=== PATIENT | male | born 1945 | race Caucasian/White ===

== ENCOUNTER 2021-12-01 09:30 | Inpatient (IN) | payer MEDICARE, OTHER ==
[~2021-12-01] VITALS: Ht 175.3 cm; Wt 86.4 kg
--- NOTE | 2021-12-01 06:19 | PM&R Post Admission Assessment ---
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 Patient did have urinary retention after Lindsey catheter discontinued and he remains on Flomax and Urecholine. Bowels have not moved he is requesting a stool softener in addition to his probiotic. Pain is well controlled he remains in a lumbar spine brace. We are awaiting ID and sensitivity of the bacterial infection. He will need a PICC line on Friday. Prior level of functioning is independent without use of assistive devices. Past Cuolbjl-Xsilnb-Djduhi Hx Past Med/Social Hx: Reviewed Nursing Past Med/Soc Hx, Reviewed and Corrections made Patient Social History Marrital Status: Employed/Student: retired Alcohol Use: Denies Use Smoking Status: Never a Smoker Past Medical History Surgeries: Orthopedic Respiratory: Sleep Apnea Cardiac: High Cholesterol, Hypertension Genitourinary: Benign Prostatic Hyperpl Gastrointestinal: Gastroesophageal Reflux, Chronic Constipation Musculoskeletal: Degenerate Disk Disease, Arthritis PM&R Allergy/Meds/Data Review Allergies Coded Allergies: clindamycin (Verified Allergy, Unknown, 12/01/21) Home Medications Scheduled Cetirizine HCl (Zyrtec), 10 MG PO DAILY Docusate Sodium (Docusate Sodium), 200 MG PO BID PRN Fluorometholone (Fluorometholone), 5 ML OP DAILY Fluticasone Propionate (Fluticasone Propionate), 16 GM NS BID Saccharomyces Boulardii (Saccharomyces Boulardii), 500 MG PO DAILY Tamsulosin HCl (Flomax), 0.4 MG PO UD Scheduled PRN Propylene Glycol (Systane Balance), 10 ML OP TID PRN for DRY EYES Current Medications Current Medications Reviewed Review of Systems Constitutional: see HPI, malaise, weakness EENTM: no symptoms reported Respiratory: no symptoms reported Cardiovascular: no symptoms reported Gastrointestinal: constipation Genitourinary: other (Retention) Musculoskeletal: back pain Skin: no symptoms reported Psychiatric/Neurological: No Symptoms Reported All Other Systems Reviewed Negative Unless Noted: Yes Physical Exam Physical Exam Vital Signs Capillary Refill : Height, Weight, BMI Height: '" Weight: lbs. oz. kg; BMI Method: General Appearance: No Apparent Distress, WD/WN, Chronically ill Eyes: Bilateral Eye Normal Inspection, Bilateral Eye PERRL HEENT: PERRL/EOMI, Normal ENT Inspection, Pharynx Normal Neck: Full Range of Motion, Normal Inspection, Non Tender, Supple, Carotid Bruit Respiratory: Chest Non Tender, Lungs Clear, Normal Breath Sounds, No Accessory Muscle Use, No Respiratory Distress Cardiovascular: Regular Rate, Rhythm, No Edema, No Gallop, No JVD, No Murmur, Normal Peripheral Pulses Gastrointestinal: Normal Bowel Sounds, No Organomegaly, No Pulsatile Mass, Non Tender, Soft Back: Normal Inspection, Decreased Range of Motion, Muscle Spasm, Vertebral Tenderness Extremity: Normal Capillary Refill, Normal Inspection, Normal Range of Motion, Non Tender, No Calf Tenderness, No Pedal Edema Neurologic/Psychiatric: Alert, Oriented x3, No Motor/Sensory Deficits, Normal Mood/Affect Skin: Normal Color, Warm/Dry Lymphatic: No Adenopathy PM&R Medical Assessment & Plan REHAB/MEDICAL ASSESSMENT AND PLAN: REHAB IMPAIRMENT GROUP: 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 ETIOLOGIC DIAGNOSIS: Lumbar stenosis The comorbidities that impact the patients function and/or functional outcome by: Advanced age, osteomyelitis, IV antibiotics required, urinary retention, chronic constipation REHAB PLAN: The patient is being admitted to our comprehensive inpatient rehabilitation facility and can tolerate the intensity of service consisting of at least: 180 minutes of therapy a day, 5 out of 7 days a week Rehab treatment will consist of: PT and OT will focus on regaining enough function with use of assistive device while wearing a lumbar spine brace while awaiting for ID and sensitivity in order to regain enough function to return back home to independent living with his The patient/family has a good understanding of our discharge process and will benefit from an interdisciplinary inpatient rehabilitation program. The patient has potential to make improvement and is in need of at least two of the following multidisciplinary therapies including but not limited to physical, occupational, speech, and prosthetics and orthotics. Additionally the patient will need services from respiratory, nutritional services, wound care, psychology, etc. (Customize this to each patient). Given the patients complex condition and risk of further medical complications, rehabilitation services cannot be safely or effectively provided at a lower level of care such as a nursing home facility. BARRIERS TO DISCHARGE: Osteomyelitis ESTIMATED LOS: 7 days DISPOSITION: Home RELEVANT CHANGES SINCE PREADMISSION SCREENING: I have compared the patients medical and functional status at the time of the preadmission screening and there are: no changes PROGNOSIS: Good REHABILITATION GOALS: 1. PT and OT for focus on regaining of function with use of assistive devices with back brace intact well receiving IV antibiotics for osteomyelitis All the above goals were reviewed with the patient and he/she is in agreement. By signing this document, I acknowledge that I have personally performed a full physical examination on this patient within 24 hours of admission to this inpatient rehabilitation facility and have determined the patient to be able to tolerate the above course of treatment at an intensive level for a reasonable period of time. I will be completing a detailed individualized Plan of Care for this patient by day #4 of the patients stay based upon the Preadmission Screen, the Post-Admission Evaluation, and the therapy evaluations. Admission Dx/Comorbidities: (1) Lumbar stenosis without neurogenic claudication ICD Codes: M48.061 - Spinal stenosis, lumbar region without neurogenic claudication NELSON JAVIER DO Dec 01, 2021 06:19
[~2021-12-01 09:30] MED LIST: ALPRAZolam 0.25 MG (XANAX) TAB PO PRN; BISACODYL 10 MG SUPP (DULCOLAX) PR PRN; CALCIUM CARBONATE 500 MG (TUMS) TAB.CHEW PO PRN; DOCUSATE SODIUM 100 MG (COLACE) CAP PO PRN; DOCUSATE SODIUM 100 MG (COLACE) CAP PO SCH; FLEET ENEMA ADULT 1 EA BTL PR PRN; LACTULOSE SYRUP 10GM/15ML (ENULOSE) 30ML UDC PO PRN; LOPERAMIDE 2 MG (IMODIUM) TABLET PO PRN; MELATONIN 3 MG TABLET PO PRN; ONDANSETRON 4 MG (ZOFRAN) ORAL DISSOLVE TAB PO PRN; diphenhydrAMINE 25 MG TAB (BENADRYL) PO PRN; guaiFENesin/CODEINE (ROBITUSSIN AC) 10ML UDC PO PRN
[2021-12-01 09:38] VITALS: BP 135/65
[2021-12-01] MEDS ORDERED: CETI10CA PO (10:08)
[2021-12-01] MEDS ORDERED: TMSL.4C PO (10:08)
[2021-12-01] MEDS ORDERED: SACC250C12 PO (10:08)
[2021-12-01] MEDS ORDERED: FLUO5DRO6 OP (10:08)
[2021-12-01] MEDS ORDERED: FLUT16SP22 NS (10:08)
[2021-12-01] MEDS ORDERED: DOCU100C37 PO (10:08)
[2021-12-01] MEDS ORDERED: PROP10DR3 OP ×2 (10:08→10:17)
--- NOTE | 2021-12-01 10:36 | Occupational Therapy Eval ---
OT Evaluation-General/PLF Medical Diagnosis Admission Date Dec 01, 2021 at 09:30 Medical Diagnosis: s/p T10-L2 fusion with revision hardware Onset Date: Dec 01, 2021 Therapy Diagnosis Therapy Diagnosis: reduced adl status Precautions Precautions/Isolations: Fall Prevention, Standard Precautions Comments spinal precautions, no lifting >10 pounds, TLSO brace on when OOB Referral Physician: Amanda Referral Reason: Evaluation/Treatment Medical History Pertinent Medical History: Arthritis Current History Pt with previous failed fusion. S/p T10-L2 fusion with revision hardware. Per patient, he lives with in single story home. 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 Pt was not using any AD at base line. Reviewed History: Yes Social History Home: Single Level Current Living Status: Spouse Entry Into Home: Stairs With Railing Steps Into Home: 4 ADL-Prior Level of Function SCALE: Activities may be completed with or without assistive devices. 6-Czchpdcwpq-pfwzexc completes the activity by him/herself with no assistance from a helper. 5-Set-up or Clean-up Assistance-helper sets up or cleans up; patient completes activity. Spur assists only prior to or following the activity. 4-Supervision or Touching Assistance-helper provides verbal cues and/or touching/steadying and/or contact guard assistance as patient completes activity. Assistance may be provided throughout the activity or intermittently. 3-Partial/Moderate Assistance-helper does LESS THAN HALF the effort. Spur lifts, holds or supports trunk or limbs, but provides less than half the effort. 2-Substantial/Maximal Assistance-helper does MORE THAN HALF the effort. Spur lifts or holds trunk or limbs and provides more than half the effort. 7-Foguoiiec-puhkey does ALL the effort. Patient does none of the effort to complete the activity. Or, the assistance of 2 or more helpers is required for the patient to complete the activity. If activity was not attempted, code reason: 7-Patient Refused. 9-Not Applicable-not attempted and the patient did not perform the activity before the current illness, exacerbation or injury. 10-Not Attempted due to Environmental Limitations-(lack of equipment, weather restraints, etc.). 88-Not Attempted due to Medical Conditions or Safety Concerns. Self Care: Independent Functional Cognition: Independent DME/Equipment: Grab Bars, Shower Drive Self: Yes OT Current Status Subjective Pt denies pain, pleasant and Agreeable to eval. Appearance Pt returned to sitting in recliner, all needs within reach, in room. Mental Status/Objective Patient Orientation: Person, Place, Situation Current Glasses/Contacts: Yes Hand Dominance: Right ADL-Treatment Eating (QC): 6 Oral Hygiene (QC): 5 Shower/Bathe Self (QC): 7 Upper Body Dressing (QC): 4 Lower Body Dressing (QC): 4 On/Off Footwear (QC): 4 Toileting Hygiene (QC): 4 Pt sitting in recliner at OT arrival. He requires education on purpose of rehab as he stated that he was told that he was coming here for IV antibiotics only. Pt is pleasant and agreeable to eval. He was already dressed but agreed to demon strate dressing for assessment purposes. Pt owns and uses a personal lines insurance agent at home when donning Lb clothing. After AE was provided, pt was able to don clothing over feet without assist. He stood with supervision to loin puller hips. He reports that his usually dons his socks for him but he was interested in other methods to improve independence. OT instructed him on use of sock aid. Post education, pt able to complete with verbal cues only. He verbalizes that he really liked the sock aid and will be looking to purchase for discharge. He demonstrated ability to don/doff TLSO brace with verbal cues and extra time. Pt ambulated around room with supervision, no AD or LOB observed. Pt reports that he really does not want to purchase a shower chair and that he rarely washes his legs (instead he will let the soapy water run down to his feet). OT educated pt that he will be unable to stand without brace while in the shower. Pt hoping to discharge after IV antibiotics are finished. Anticipate very short stay. Education OT Patient Education: Correct positioning, Energy conservation, Modified ADL techniques, Purpose of tx/functional activities, Reviewed precautions, Rehab process, Use of adapted equipment Teaching Recipient: Patient, Family Teaching Methods: Demonstration, Discussion Response to Teaching: Verbalize Understanding, Return Demonstration, Reinforcement Needed OT Short Term Goals Short Term Goals Time Frame: Dec 04, 2021 Eatin Oral hygiene: 6 Toileting hygiene: 6 Shower/bathe self: 4 Upper body dressin Lower body dressin Putting on/taking off footwear: 5 OT Retirement Goals Retirement Goals Time Frame: Dec 08, 2021 Eating (QC): 6 Oral Hygiene (QC): 6 Toileting Hygiene (QC): 6 Shower/Bathe Self (QC): 6 Upper Body Dressing (QC): 6 Lower Body Dressing (QC): 6 On/Off Footwear (QC): 6 1=Demonstrate adherence to instructed precautions during ADL tasks. 2=Patient will verbalize/demonstrate understanding of assistive devices/modifications for ADL. 3=Patient will improve strength/tolerance for activity to enable patient to per form ADL's. OT Education/Plan Problem List/Assessment Assessment: Decreased UE Strength, Impaired I ADL's, Impaired Self-Care Skills Discharge Recommendations Plan/Recommendations: Continue POC Therapy Discharge Recommendati: Home & Family Equpiment Recommendations-D/C: Bath Chair, Long Term Care Phlebotomist, Sock Aide Treatment Plan/Plan of Care Treatment,Training & Education: Yes Patient would benefit from OT for education, treatment and training to promote independence in ADL's, mobility, safety and/or upper extremity function for ADL's. Plan of Care: ADL Retraining, Functional Mobility, Group Exercise/Act as Ind, UE Funct Exercise/Act Treatment Duration: Dec 08, 2021 Frequency: At least 5 of 7 days/Wk (IRF) Estimated Hrs Per Day: 1.5 hours per day (75-90 min/day) Agreement: Yes Rehab Potential: Good Time/GCodes Start Time: 09:47 Stop Time: 10:25 Total Time Billed (hr/min): 38 Billed Treatment Time 1 visit EVL (10 min) ADL x2 (28 min) Gladys Jamil OT Dec 01, 2021 10:36
[2021-12-01] MEDS: SENNA W/DOCUSATE (SENOKOT S) TABLET PO SCH ×2 (11:33→20:41)
[2021-12-01] MEDS: polyethylene glycoL POWDER 17 GM (MIRALAX) PACK PO SCH ×2 (11:33→20:41)
--- NOTE | 2021-12-01 11:43 | Physical Therapy Evaluation ---
PT Evaluation-General Medical Diagnosis Admission Date Dec 01, 2021 at 09:30 Medical Diagnosis: s/p T10-L2 fusion with revision hardware Onset Date: Dec 01, 2021 Therapy Diagnosis Therapy Diagnosis: difficulty walking Precautions Precautions/Isolations: Fall Prevention, Standard Precautions Weight Bear Status Right Lower Extremity: Right Full Weight Bearing Left Lower Extremity: Left Full Weight Bearing Referral Physician: Amanda Reason for Referral: Evaluation/Treatment Medical History Pertinent Medical History: Arthritis Reviewed History: Yes Social History Home: Single Level Current Living Status: Spouse Entry Into Home: Stairs With Railing PT Steps Into Home: 4 Prior Prior Level of Function SCALE: Activities may be completed with or without assistive devices. 9-Sfpojpbgen-ehweame completes the activity by him/herself with no assistance from a helper. 5-Set-up or Clean-up Assistance-helper sets up or cleans up; patient completes activity. Keene assists only prior to or following the activity. 4-Supervision or Touching Assistance-helper provides verbal cues and/or touching/steadying and/or contact guard assistance as patient completes activity. Assistance may be provided throughout the activity or intermittently. 3-Partial/Moderate Assistance-helper does LESS THAN HALF the effort. Keene lifts, holds or supports trunk or limbs, but provides less than half the effort. 2-Substantial/Maximal Assistance-helper does MORE THAN HALF the effort. Keene lifts or holds trunk or limbs and provides more than half the effort. 9-Sdksmlily-qhllkq does ALL the effort. Patient does none of the effort to complete the activity. Or, the assistance of 2 or more helpers is required for the patient to complete the activity. If activity was not attempted, code reason: 7-Patient Refused. 9-Not Applicable-not attempted and the patient did not perform the activity before the current illness, exacerbation or injury. 10-Not Attempted due to Environmental Limitations-(lack of equipment, weather restraints, etc.). 88-Not Attempted due to Medical Conditions or Safety Concerns. Bed Mobility: 6 Transfers (B,C,W/C): 6 Gait: 6 Stairs: 6 Indoor Mobility (Ambulation): Independent Stairs: Independent Prior Devices Use: None PT Evaluation-Current Subjective States that he had a L2-S1 fusion in September. States that a few screws backed out and then he had a revision a few days ago that included up to T10. The patient states that he possibly has an infection in the lumbar region. Pain Numeric Pain Scale: 2 Location: Incisional ROM/Strength ROM Upper Extremities WFL ROM Lower Extremities WFL Strength Lower Extremities 4+/5 Sensory Hand Dominance: Right Transfers Roll Left & Right (QC): 5 Sit to Lying (QC): 5 Lying to Sitting/Side of Bed(Q: 5 Sit to Stand (QC): 5 Chair/Yps-ka-Eqxpk Xfer(QC): 5 Toilet Transfer (QC): 5 Car Transfer (QC): 5 Gait Does the Patient Walk?: Yes Mode of Locomotion: Walk Anticipated Mode of Locomotion: Walk Walk 10 feet (QC): 5 Walk 50 ft with 2 Turns(QC): 5 Walk 150 ft (QC): 5 Walking 10ft/uneven surface-QC: 88 Distance: 100' Gait Assistive Device: FWW Wheelchair Training Does the Pt Use a Wheelchair?: No Wheel 50 ft with 2 turns (QC): 09 Wheel 150 ft (QC): 09 Stairs #of Steps: 12 1 Step (curb) (QC): 5 4 Steps (QC): 5 12 Steps (QC): 5 Balance Sitting Static: Normal Sitting Dynamic: Normal Standing Static: Fair Standing Dynamic: Fair Picking up an Object (QC): 88 Assessment/Needs The patient is doing well but he does have some limitations with functional mobility secondary to pain. He should do well with skilled therapy. Rehab Potential: Good PT Banana Expert Goals Intermediate Goals PT Intermediate Goals Time Frame: Dec 15, 2021 Roll Left & Right (QC): 6 Sit to Lying (QC): 6 Lying-Sitting on Side/Bed(QC): 6 Sit to Stand (QC): 6 Chair/Hpv-ag-Jeajo Xfer(QC): 6 Toilet Transfer (QC): 6 Car Transfer (QC): 6 Does the Patient Walk: Yes Walk 10 feet (QC): 6 Walk 50ft with 2 Turns (QC): 6 Walk 150 ft (QC): 6 Walking 10ft on Uneven Surface: 6 1 Step (curb) (QC): 6 4 Steps (QC): 6 12 Steps (QC): 6 Picking up an Object (QC): 6 Does the Pt use WC or Scooter?: Yes Wheel 50 feet with 2 turns (QC: 09 Wheel 150 feet: 09 PT Plan Treatment/Plan Treatment Plan: Continue Plan of Care Treatment Plan: Bed Mobility, Functional Activity Abdelrahman, Gait, Safety, Thera peutic Exercise, Transfers Treatment Duration: Dec 15, 2021 Frequency: 11 times per week Estimated Hrs Per Day: 1.5 hours per day Patient and/or Family Agrees t: Yes Time/GCodes Time In: 1140 Time Out: 1200 Total Billed Treatment Time: 20 Total Billed Treatment 1, EV Low complexity x 20' VALENTÍN XIONG PT Dec 01, 2021 11:43
[2021-12-01] MEDS ORDERED: VANCOMYCIN INJECTION 0.1 MG in NS (IVPB) 250 ML IV SCH (11:45)
[2021-12-01] MEDS ORDERED: ARTIFICAL TEARS 0.4 ML UNIT DOSE (REFRESH PLUS) OU PRN (12:00)
[2021-12-01] MEDS ORDERED: PROPYLENE GLYCOL OP PRN (12:00)
[2021-12-01 12:23] LABS: POTASSIUM 3.7 MMOL/L (3.6-5.0)
[2021-12-01 12:24] LABS: CALCIUM 8.8 MG/DL (8.5-10.1)
[2021-12-01 12:28] LABS: CREATININE SERUM 0.76 MG/DL (0.60-1.30)
[2021-12-01] MEDS: ACETAMINOPHEN 325 MG TABLET PO PRN ×2 (13:30→20:45)
[2021-12-01] MEDS: VANCOMYCIN 1250 MG/NS 250 ML IVPB IV SCH ×2 (14:32)
[2021-12-01] MEDS: BETHANECHOL 25 MG (URECHOLINE) TAB PO SCH ×2 (17:18→20:42)
[2021-12-01] MEDS: TAMSULOSIN 0.4 MG (FLOMAX) CAP PO SCH (17:19)
[2021-12-01 19:53] VITALS: BP 133/61
[2021-12-01] MEDS: DOCUSATE SODIUM 100 MG (COLACE) CAP PO SCH (20:41)
[2021-12-01] MEDS: rifAMPin 150 MG CAPSULE PO SCH (20:44)
[2021-12-01] MEDS: FLUTICASONE NASAL SPRAY (FLONASE) 16 GM BTL NS SCH (20:44)
[2021-12-02] MEDS: VANCOMYCIN 1250 MG/NS 250 ML IVPB IV SCH ×2 (01:58)
[2021-12-02] MEDS: ACETAMINOPHEN 325 MG TABLET PO PRN (04:27)
[2021-12-02 05:18] LABS: BASOPHILS # (AUTO) 0.1 10^3/uL (0.0-0.1); BASOPHILS % (AUTO) 1 % (0-10); EOSINOPHILS # (AUTO) 0.2 10^3/uL (0.0-0.3); EOSINOPHILS % (AUTO) 3 % (0-10); HEMATOCRIT 31 % (40-54); HEMOGLOBIN 10.3 g/dL (13.3-17.7); LYMPHOCYTES # (AUTO) 1.1 10^3/uL (1.0-4.0); LYMPHOCYTES % (AUTO) 13 % (12-44); MEAN CORPUSCULAR HEMOGLOBIN 29 pg (25-34); MEAN CORPUSCULAR HGB CONC 33 g/dL (32-36); MEAN CORPUSCULAR VOLUME 87 fL (80-99); MEAN PLATELET VOLUME 9.3 fL (9.0-12.2); MONOCYTES # (AUTO) 0.7 10^3/uL (0.0-1.0); MONOCYTES % (AUTO) 9 % (0-12); NEUTROPHILS # (AUTO) 6.3 10^3/uL (1.8-7.8); NEUTROPHILS % (AUTO) 74 % (42-75); PLATELET COUNT 164 10^3/uL (130-400); WHITE BLOOD COUNT 8.4 10^3/uL (4.3-11.0)
[2021-12-02 05:34] LABS: ALBUMIN 3.2 GM/DL (3.2-4.5); POTASSIUM 3.4 MMOL/L (3.6-5.0)
[2021-12-02 05:35] LABS: CALCIUM 8.1 MG/DL (8.5-10.1)
[2021-12-02 05:36] LABS: TOTAL PROTEIN 5.6 GM/DL (6.4-8.2)
[2021-12-02 05:38] LABS: BILIRUBIN,TOTAL 2.2 MG/DL (0.1-1.0)
[2021-12-02 05:40] LABS: CREATININE SERUM 0.62 MG/DL (0.60-1.30)
[2021-12-02] MEDS: BETHANECHOL 25 MG (URECHOLINE) TAB PO SCH (06:34)
--- NOTE | 2021-12-02 07:08 | Individualized Plan of Care ---
Individualized Plan of Care Rehab Nursing IPOC Order Admission Date Dec 01, 2021 at 09:30 Current Orders Orders Admission Order(Inpt,Obs,Sdc) (12/01/21 06:15) Vital Signs: Per Unit Policy ( 08,16,00 (12/01/21 06:15) Raheel Curry (12/01/21 06:15) Sequential Compression Device (12/01/21 06:15) Director College-Inpt Rehab Con (12/01/21 06:15) Rehab Nursing Orders-Ipoc (12/01/21 06:15) Physical Therapy Rehab Orders (12/01/21 06:15) Occupational Therapy Rehab Ord (12/01/21 06:15) Speech Therapy Rehab Orders (12/01/21 06:15) Cbc With Automated Diff (12/02/21 06:00) Comprehensive Metabolic Panel (12/02/21 06:00) Precautions (Aru) (12/01/21 06:15) Weekly Weight WEEK (12/01/21 06:15) Rehab-Intensity Of Therapy (12/01/21 06:15) Initiate Admission Nursing Pro .admission (12/01/21 06:15) Alprazolam Tablet (Xanax Tablet) (12/01/21 06:15) Calcium Carbonate Chew Tablet (Antacid C (12/01/21 06:15) Diphenhydramine Tablet (Benadryl Tablet) (12/01/21 06:15) Docusate Sodium Capsule (Colace Capsule) (12/01/21 09:00) Docusate Sodium Capsule (Colace Capsule) (12/01/21 06:15) Bisacodyl Suppository (Dulcolax Supposit (12/01/21 06:15) Lactulose Oral Solution (Enulose Oral So (12/01/21 06:15) Na Phos/Na Biphos Enema (Fleet Enema Alton (12/01/21 06:15) Guaifenesin/Codeine Syrup (Robitussin Ac (12/01/21 06:15) Loperamide Tablet (Imodium Tablet) (12/01/21 06:15) Melatonin Tablet (Melatonin Tablet) (12/01/21 06:15) Polyethylene Glycol Powder Pkt (Miralax (12/01/21 09:00) Ondansetron Oral Dissolve Tab (Zofran (12/01/21 06:15) Senna S Tablet (Senokot S Tablet) (12/01/21 09:00) Acetaminophen Tablet/Caplet (Tylenol T (12/01/21 06:15) Code/Resuscitation (12/01/21 06:15) Initiate Admission Nursing Pro .admission (12/01/21 06:15) Admission Arrival Bed Request (12/01/21 09:31) General/Regular (12/01/21 Lunch) Iv Heplock-Insert (Order) (12/01/21 11:45) Vancomycin Injection (Vancomycin Injecti (12/01/21 11:45) Docusate Sodium Capsule (Colace Capsule) (12/01/21 21:00) Fluorometholone 0.1% Ophth Jessica (Fml 0.1% (12/02/21 09:00) Fluticasone Nasal Strabane (Flonase Nasal S (12/01/21 21:00) Tamsulosin Capsule (Flomax Capsule) (12/01/21 18:00) (Nf) Cetirizine Hcl (Zyrtec) (12/02/21 09:00) (Nf) Propylene Glycol (Systane Balance) (12/01/21 12:00) (Nf) Saccharomyces Boulardii (12/02/21 09:00) Basic Metabolic Panel (12/01/21 11:48) Loratadine Tablet (Claritin Tablet) (12/02/21 09:00) Carboxymethylcell Ophth Soln (Refresh Pl (12/01/21 12:00) Lactobacillus Acidophilus Cap (Acidophil (12/02/21 09:00) Patient Visit (12/01/21 ) Pt Eval Low Complexity (12/01/21 ) Rifampin Capsule (Rifadin Capsule) (12/01/21 21:00) Bethanechol Tablet (Urecholine Tablet) (12/01/21 16:00) Vancomycin Injection (Vancomycin Injecti (12/01/21 14:00) Trough Order (Trough Order-Pharmacy Orde (12/02/21 13:00) Vancomycin,Trough (12/02/21 13:00) Request Ot Additional Orders (12/01/21 14:47) Dressing Order (Intervention) UD (12/01/21 14:50) Request Pt Additional Orders (12/01/21 14:56) Nursing Communication (Order) (12/01/21 14:57) Follow-Up Appointment (12/01/21 14:57) Patient May Use Own Med,Single (Patient (12/02/21 11:15) Patient May Use Own Med,Single (Patient (12/02/21 11:30) Bethanechol Tablet (Urecholine Tablet) (12/02/21 12:00) Vancomycin Injection (Vancomycin Injecti (12/02/21 14:30) Trough Order (Trough Order-Pharmacy Orde (12/04/21 13:30) Vancomycin,Trough (12/04/21 13:30) Rehab Nursing Orders: Ongoing Assess. of Cognitive Status, Ongoing Assess. of Function Status, Bladder Management, Bladder Scan, Bladder Training, Bowel Management, Bowel Training, Disease Management & Educaiton, DVT Prophylaxis, Fall Prevention, Fluid/Electrolyte/Nutrition Mgmt, Infection Prevention, Medication Management & Education, Management of Risks & Complications, Management of Skin Intergrity, Nutrition Management, Pain Management, Patient/Family Support, Safety Management Intensity of Therapy to be met Patient to be seen: Min.3h per day/5 of 7d PT IPOC Problem List: Activity Tolerance, Functional Strength, Balance, Gait, ROM Treatment Plan: Continue Plan of Care Bed Mobility, Functional Activity Abdelrahman, Gait, Safety, Therapeutic Exercise, Transfers Treatment Duration: Dec 15, 2021 Frequency: 11 times per week Estimated Hrs Per Day: 1.5 hours per day OT IPOC Problems: Decreased UE Strength, Impaired I ADL's, Impaired Self-Care Skills OT Treatment, Training and Edu: Yes Plan of Care: ADL Retraining, Functional Mobility, Group Exercise/Act as Ind, UE Funct Exercise/Act Treatment Duration: Dec 08, 2021 Frequency: At least 5 of 7 days/Wk (IRF) Estimated Hrs Per Day: [address] IPOC Speech Therapy Treatment Plan: Discontinue ST Treatment Duration: Dec 02, 2021 Frequency: Modified Program (IRF) Estimated Hrs Per Day: Other Director College/Case Mgmt Director College/Case Managemen: Discharge Planning Dietitian/Internet Marketing Intern Dietitian/Internet Marketing Intern to monitor nutritional status and make changes and/or recommendations as needed and work with speech pathology on dietary upgrades as the occur. Physician IPOC Medical Issues being managed closely and that require the 24 hour availability of a physician: Complex lumbar spine surgery requiring supportive care with aggressive physical therapy while awaiting ID and sensitivity of bacteria in order to regain enough independence to return home Medical Issues: Bowel/Bladder Function, DVT Prophylaxis, Falls Precautions, Fluid/Electrolyte/Nutrition Balance, Infection Protection, Pain Management, Wound Care Brief Synthesis of Preadmission Screen, Post-Admission Evaluation, and Therapy Evaluations: PT and OT will initiate aggressive regimen to increase stamina and work on balance to prevent falls following extensive lumbar spine surgery Medical Prognosis: Good Anticipated Length of Stay: 6 days NELSON JAVIER DO Dec 02, 2021 07:08
--- NOTE | 2021-12-02 07:08 | PM&R Progress Note ---
Subjective HPI/CC On Admission Date Seen by Provider: Dec 02, 2021 Time Seen by Provider: 12:00 Subjective/Events-last exam 12/02/21: Patient doing well Bowels are moving Antibiotic regimen maintained Awaiting final results with ID and sensitivity from Linda Jarrett Pain is well controlled Monitor closely Review of Systems General: Fatigue, Malaise Musculoskeletal: back pain Objective Exam Vital Signs Vital Signs Date Time Temp Pulse Resp B/P (MAP) Pulse Ox O2 Delivery O2 Flow Rate FiO2 12/02/21 09:20 Room Air 12/02/21 07:09 36.7 84 20 140/68 (92) 96 Capillary Refill : General Appearance: No Apparent Distress, WD/WN, Chronically ill HEENT: PERRL/EOMI, Normal ENT Inspection, Pharynx Normal Neck: Full Range of Motion, Normal Inspection, Non Tender, Supple, Carotid Bruit Respiratory: Chest Non Tender, Lungs Clear, Normal Breath Sounds, No Accessory Muscle Use, No Respiratory Distress Cardiovascular: Regular Rate, Rhythm, No Edema, No Gallop, No JVD, No Murmur, Normal Peripheral Pulses Gastrointestinal: Normal Bowel Sounds, No Organomegaly, No Pulsatile Mass, Non Tender, Soft Back: Normal Inspection, Decreased Range of Motion, Muscle Spasm, Vertebral Tenderness Extremity: Normal Capillary Refill, Normal Inspection, Normal Range of Motion, Non Tender, No Calf Tenderness, No Pedal Edema Neurologic/Psychiatric: Alert, Oriented x3, No Motor/Sensory Deficits, Normal Mood/Affect Skin: Normal Color, Warm/Dry Lymphatic: No Adenopathy Results/Procedures Lab Laboratory Tests 12/02/21 05:10 Patient resulted labs reviewed. FIM Transfers Therapy Code Descriptions/Definitions Functional [place] Measure: 0=Not Assessed/NA 4=Minimal Assistance 1=Total Assistance 5=Supervision or Setup 2=Maximal Assistance 6=Modified [place] 3=Moderate Assistance 7=Complete IndependenceSCALE: Activities may be completed with or without assistive devices. 6-Dyzqlgexxy-zupxnlj completes the activity by him/herself with no assistance from a helper. 5-Set-up or Clean-up Assistance-helper sets up or cleans up; patient completes activity. [place] assists only prior to or following the activity. 4-Supervision or Touching Assistance-helper provides verbal cues and/or touch ing/steadying and/or contact guard assistance as patient completes activity. Assistance may be provided throughout the activity or intermittently. 3-Partial/Moderate Assistance-helper does LESS THAN HALF the effort. [place] lifts, holds or supports trunk or limbs, but provides less than half the effort. 2-Substantial/Maximal Assistance-helper does MORE THAN HALF the effort. [place] lifts or holds trunk or limbs and provides more than half the effort. 5-Yjajgwfnc-jgzbms does ALL the effort. Patient does none of the effort to complete the activity. Or, the assistance of 2 or more helpers is required for the patient to complete the activity. If activity was not attempted, code reason: 7-Patient Refused. 9-Not Applicable-not attempted and the patient did not perform the activity bef ore the current illness, exacerbation or injury. 10-Not Attempted due to Environmental Limitations-(lack of equipment, weather restraints, etc.). 88-Not Attempted due to Medical Conditions or Safety Concerns. Roll Left to Right (QC): 5 Sit to Lying (QC): 5 Sit to Stand (QC): 5 Chair/Xwd-vu-Kdvew Xfer(QC): 5 Car Transfer (QC): 5 Gait Training Does the Patient Walk?: Yes Walk 10 feet (QC): 5 Walk 50 ft with 2 Turns(QC): 5 Walk 150 ft (QC): 5 Walking 10ft/uneven surface-QC: 88 Gait Assistive Device: FWW Wheelchair Training Does the Pt Use a Wheelchair?: No Wheel 50 ft with 2 turns (QC): 09 Wheel 150 ft (QC): 09 Stair Training #of Steps: 12 1 Step (curb) (QC): 5 4 Steps (QC): 5 12 Steps (QC): 5 Balance Picking up an Object (QC): 88 ADL-Treatment Eating (QC): 6 Oral Hygiene (QC): 5 Shower/Bathe Self (QC): 7 Upper Body Dressing (QC): 4 Lower Body Dressing (QC): 4 On/Off Footwear (QC): 4 Toileting Hygiene (QC): 4 Assessment/Plan Assessment and Plan Assess & Plan/Chief Complaint Assessment: Lumbar spine surgery due to stenosis with bacterial infection on surgical specimen on Vanc and Rifampin DARIN BPH Recent urinary retention Constipation Plan: PT OT IV abx Supportive jail meds 12/02/21: Supportive care Monitor closely (1) Lumbar stenosis without neurogenic claudication NELSON JAVIER DO Dec 02, 2021 07:08
[2021-12-02 07:09] VITALS: BP 140/68
[2021-12-02] MEDS: rifAMPin 150 MG CAPSULE PO SCH ×2 (08:25→20:26)
[2021-12-02] MEDS: LACTOBACILLUS ACIDOPHILUS (PROBIOTIC) CAPSULE PO SCH (08:25)
[2021-12-02] MEDS: LORATADINE (CLARITIN) 10 MG TAB PO SCH (08:25)
[2021-12-02] MEDS: FLUTICASONE NASAL SPRAY (FLONASE) 16 GM BTL NS SCH ×2 (08:26→20:27)
[2021-12-02] MEDS: FLUOROMETHOLONE 0.1% OP SCH (08:27)
[2021-12-02] MEDS: polyethylene glycoL POWDER 17 GM (MIRALAX) PACK PO SCH ×2 (08:28→20:52)
[2021-12-02] MEDS: DOCUSATE SODIUM 100 MG (COLACE) CAP PO SCH ×2 (08:28→20:52)
[2021-12-02] MEDS: SENNA W/DOCUSATE (SENOKOT S) TABLET PO SCH ×2 (08:28→20:52)
[2021-12-02] MEDS ORDERED: NON-FORMULARY MEDICATION 1 EA EA (Cetirizine HCl (Zyrtec) 10 MG) PO SCH (09:00)
[2021-12-02] MEDS ORDERED: SACCHAROMYCES BOULARDII 500 MG PO SCH (09:00)
[2021-12-02] MEDS ORDERED: PATIENT MAY USE OWN MED,SINGLE MED PO PRN (11:15)
[2021-12-02] MEDS ORDERED: BETHANECHOL 25 MG (URECHOLINE) TAB PO PRN (12:00)
[2021-12-02] MEDS: ACETAMINOPHEN ER 650 MG TABLET PO PRN ×2 (12:04→18:37)
[2021-12-02] MEDS ORDERED: TROUGH ORDER-PHARMACY XX NR (13:00)
[2021-12-02] MEDS: VANCOMYCIN 1500 MG/NS 500 ML IVPB IV SCH ×2 (14:57)
[2021-12-02] MEDS: TAMSULOSIN 0.4 MG (FLOMAX) CAP PO SCH (18:35)
[2021-12-02 19:52] VITALS: BP 138/63
[2021-12-03] MEDS: ACETAMINOPHEN ER 650 MG TABLET PO PRN ×4 (01:28→21:12)
[2021-12-03] MEDS: VANCOMYCIN 1500 MG/NS 500 ML IVPB IV SCH ×2 (02:26)
--- NOTE | 2021-12-03 07:08 | PM&R Progress Note ---
Subjective HPI/CC On Admission Date Seen by Provider: Dec 03, 2021 Time Seen by Provider: 10:00 Subjective/Events-last exam 12/03/21: No reports of issues Coag negative staph on Cx Vanc and rifampin maintained PICC will be placed 12/02/21: Patient doing well Bowels are moving Antibiotic regimen maintained Awaiting final results with ID and sensitivity from Linda Jarrett Pain is well controlled Monitor closely Review of Systems General: Fatigue Musculoskeletal: back pain Objective Exam Vital Signs Vital Signs Date Time Temp Pulse Resp B/P (MAP) Pulse Ox O2 Delivery O2 Flow Rate FiO2 12/03/21 09:55 Room Air 12/03/21 07:36 36.8 76 16 124/61 (82) 96 Capillary Refill : General Appearance: No Apparent Distress, WD/WN, Chronically ill HEENT: PERRL/EOMI, Normal ENT Inspection, Pharynx Normal Neck: Full Range of Motion, Normal Inspection, Non Tender, Supple, Carotid Bruit Respiratory: Chest Non Tender, Lungs Clear, Normal Breath Sounds, No Accessory Muscle Use, No Respiratory Distress Cardiovascular: Regular Rate, Rhythm, No Edema, No Gallop, No JVD, No Murmur, Normal Peripheral Pulses Gastrointestinal: Normal Bowel Sounds, No Organomegaly, No Pulsatile Mass, Non Tender, Soft Back: Normal Inspection, Decreased Range of Motion, Muscle Spasm, Vertebral Tenderness Extremity: Normal Capillary Refill, Normal Inspection, Normal Range of Motion, Non Tender, No Calf Tenderness, No Pedal Edema Neurologic/Psychiatric: Alert, Oriented x3, No Motor/Sensory Deficits, Normal Mood/Affect Skin: Normal Color, Warm/Dry Lymphatic: No Adenopathy Results/Procedures Lab Patient resulted labs reviewed. FIM Transfers Therapy Code Descriptions/Definitions Functional [place] Measure: 0=Not Assessed/NA 4=Minimal Assistance 1=Total Assistance 5=Supervision or Setup 2=Maximal Assistance 6=Modified [place] 3=Moderate Assistance 7=Complete IndependenceSCALE: Activities may be completed with or without assistive devices. 2-Frhfdzpslw-wrkzidy completes the activity by him/herself with no assistance from a helper. 5-Set-up or Clean-up Assistance-helper sets up or cleans up; patient completes activity. [place] assists only prior to or following the activity. 4-Supervision or Touching Assistance-helper provides verbal cues and/or touching/steadying and/or contact guard assistance as patient completes activity. Assistance may be provided throughout the activity or intermittently. 3-Partial/Moderate Assistance-helper does LESS THAN HALF the effort. [place] lifts, holds or supports trunk or limbs, but provides less than half the effort. 2-Substantial/Maximal Assistance-helper does MORE THAN HALF the effort. [place] lifts or holds trunk or limbs and provides more than half the effort. 4-Cyszythpt-lcclxf does ALL the effort. Patient does none of the effort to complete the activity. Or, the assistance of 2 or more helpers is required for the patient to complete the activity. If activity was not attempted, code reason: 7-Patient Refused. 9-Not Applicable-not attempted and the patient did not perform the activity before the current illness, exacerbation or injury. 10-Not Attempted due to Environmental Limitations-(lack of equipment, weather restraints, etc.). 88-Not Attempted due to Medical Conditions or Safety Concerns. Roll Left to Right (QC): 5 Sit to Lying (QC): 5 Sit to Stand (QC): 5 Chair/Mia-tl-Robkw Xfer(QC): 5 Car Transfer (QC): 5 Gait Training Does the Patient Walk?: Yes Walk 10 feet (QC): 5 Walk 50 ft with 2 Turns(QC): 5 Walk 150 ft (QC): 5 Walking 10ft/uneven surface-QC: 88 Gait Assistive Device: FWW Wheelchair Training Does the Pt Use a Wheelchair?: No Wheel 50 ft with 2 turns (QC): 09 Wheel 150 ft (QC): 09 Stair Training #of Steps: 12 1 Step (curb) (QC): 5 4 Steps (QC): 5 12 Steps (QC): 5 Balance Picking up an Object (QC): 88 ADL-Treatment Eating (QC): 6 Oral Hygiene (QC): 5 Shower/Bathe Self (QC): 7 Upper Body Dressing (QC): 4 Lower Body Dressing (QC): 4 On/Off Footwear (QC): 4 Toileting Hygiene (QC): 4 Assessment/Plan Assessment and Plan Assess & Plan/Chief Complaint Assessment: Lumbar spine surgery due to stenosis with bacterial infection on surgical specimen on Vanc and Rifampin DARIN BPH Recent urinary retention Constipation Plan: PT OT IV abx Supportive senior care meds 12/02/21: Supportive care Monitor closely 12/03/21: PICC Vanc (1) Lumbar stenosis without neurogenic claudication NELSON JAVIER DO Dec 03, 2021 07:08
[2021-12-03 07:36] VITALS: BP 124/61
[2021-12-03] MEDS: rifAMPin 150 MG CAPSULE PO SCH ×2 (08:03→21:11)
[2021-12-03] MEDS: FLUTICASONE NASAL SPRAY (FLONASE) 16 GM BTL NS SCH ×2 (08:03→21:11)
[2021-12-03] MEDS: LACTOBACILLUS ACIDOPHILUS (PROBIOTIC) CAPSULE PO SCH (08:03)
[2021-12-03] MEDS: FLUOROMETHOLONE 0.1% OP SCH (08:03)
[2021-12-03] MEDS: LORATADINE (CLARITIN) 10 MG TAB PO SCH (08:03)
--- NOTE | 2021-12-03 08:57 | ST Cognitive Linguistic Eval ---
Speech Evaluation-General Medical Diagnosis s/p T10-L2 fusion with revision hardware Onset Date: Dec 01, 2021 Therapy Diagnosis Therapy Diagnosis: Intact Cognitive Linguistic Skills Precautions Precautions: Fall Precautions/Isolations: Fall Prevention, Standard Precautions Referral Referring Physician: Dr. Patel Reason for Referral: Evaluation/Treatment Medical History Pertinent Medical History: Arthritis Reviewed History: Yes Social History Current Living Status: Spouse Speech PLF-Current Status Prior Level of Function The patient denied challenges or concerns regarding his speech, language, or cognition prior to or following admission. Subjective The patient was seated upright in his recliner, awake and alert upon entrance to his room by the clinician. The patient greeted the clinician appropriately and was agreeable to participation in the cognitive linguistic evaluation. Language Eval: Auditory Comprehends Simple Yes/No Ques: Functional Indent/Objects Multiple Oneal: Functional Ident/Pics in Multiple Oneal: Functional Follows 1-Step Commands: Functional Follows Complex Directions: Functional Follows General Conversations: Functional Language Eval: Verbal Language Completes Spontaneous Greeting: Functional Produces Auto, Serial Info: Functional Imitates Simple Words/Phrases: Functional Word Finding: Functional Requests Basic Needs: Functional States Basic Personal Info: Functional Expresses Complex Ideas: Functional Language Evaluation: Reading Follows Simple Written Direct: Functional Language Evaluation: Writing Writes to Simple Dictation: Functional Cognitive Patient Orientation The patient was independently oriented to self, location, month, day of week, date, and year. Objective Cognitive Domain Attention: WNL Memory: WNL Problem Solving: Functional Executive Functions: WNL Composite Severity Rating: WNL Objective Formal/Standardized Tests [facility] Mental Status Exam ([facility]) Results The patient demonstrated a result of +30/30 on the SLUMS correlating to a cognitive linguistic score within normal limits. Oral Motor/Speech Production The patient does not display dysarthria or apraxia of speech. The patient remains 100% intelligible in known and unknown contexts. Impression The patient demonstrated cognitive linguistic skills within normal limits. Speech Patient Assess Expression of Ideas/Wants: Expression (4) Understanding Verbal Content: Understands (4) Brief Interview-Mental Status: Yes Repetition of Three Words: Three (3) Temporal Orientation: Year: Correct (3) Temporal Orientation: Month: Accurate within 5 days(2) Temporal Orientation: Day: Correct (1) Recall : Wear to say "Sock": Yes, no cue required (2) Recall : Color: Yes, no cue required (2) Recall : Bed: Yes, no cue required (2) Memory/Recall Ability: Current season, Location of own room, Staff names and faces, That he or she is in a hsp/hsp unit Speech-Plan Treatment Plan Speech Therapy Treatment Plan: Discontinue ST Treatment Duration: Dec 02, 2021 Frequency: 1 time per week Estimated Hrs Per Day: .5 hour per day Rehab Potential: Good Safety Risks/Education Teaching Recipient: Patient Teaching Methods: Discussion Response to Teaching: Verbalize Understanding Education Topics Provided: Results of ELIZABETH DURON Time Speech Therapy Time In: 08:00 Speech Therapy Time Out: 08:30 Total Billed Time: 30 Billed Treatment Time 1, GINA CHAMORRO ELIZABETH ST Dec 03, 2021 08:57
[2021-12-03] MEDS: DOCUSATE SODIUM 100 MG (COLACE) CAP PO SCH ×2 (09:50→21:43)
[2021-12-03] MEDS: SENNA W/DOCUSATE (SENOKOT S) TABLET PO SCH ×2 (09:51→21:44)
[2021-12-03] MEDS: polyethylene glycoL POWDER 17 GM (MIRALAX) PACK PO SCH ×2 (09:51→21:43)
--- NOTE | 2021-12-03 09:57 | Physical Therapy Daily Note ---
PT Daily Note-Current Subjective Patient in recliner pre tx, agrees to PT, states he has no pain in his back other than incision pain. Appearance Patient in recliner post tx with nurse call, phone, tray, all needs met. Mental Status Patient Orientation: Person, Place, Situation TLSO Transfers SCALE: Activities may be completed with or without assistive devices. 9-Tfwreuzwtk-itjaxmc completes the activity by him/herself with no assistance from a helper. 5-Set-up or Clean-up Assistance-helper sets up or cleans up; patient completes activity. [place] assists only prior to or following the activity. 4-Supervision or Touching Assistance-helper provides verbal cues and/or touching/steadying and/or contact guard assistance as patient completes activity. Assistance may be provided throughout the activity or intermittently. 3-Partial/Moderate Assistance-helper does LESS THAN HALF the effort. [place] lifts, holds or supports trunk or limbs, but provides less than half the effort. 2-Substantial/Maximal Assistance-helper does MORE THAN HALF the effort. [place] lifts or holds trunk or limbs and provides more than half the effort. 6-Cxrgfpguj-broalh does ALL the effort. Patient does none of the effort to complete the activity. Or, the assistance of 2 or more helpers is required for the patient to complete the activity. If activity was not attempted, code reason: 7-Patient Refused. 9-Not Applicable-not attempted and the patient did not perform the activity before the current illness, exacerbation or injury. 10-Not Attempted due to Environmental Limitations-(lack of equipment, weather restraints, etc.). 88-Not Attempted due to Medical Conditions or Safety Concerns. Sit to Stand (QC): 6 Chair/Cuu-wx-Krlsd Xfer(QC): 6 Weight Bearing Right Lower Extremity: Right Full Weight Bearing Left Lower Extremity: Left Full Weight Bearing Gait Training Distance: 800'x2 Walk 10 feet (QC): 4 Walk 50 ft with 2 Turns(QC): 4 Walk 150 ft (QC): 4 Gait Assistive Device: FWW SBA, slow but steady ambulation Exercises NuStep Minutes: 15 NuStep Workload: 4 (BUE not used) Treatments transfers, ambulation, LE strengthening Assessment Current Status: Fair Progress patient needed one rest break on the NuStep PT Senior Living Goals Packaging Tech Goals PT Packaging Tech Goals Time Frame: Dec 15, 2021 Roll Left & Right (QC): 6 Sit to Lying (QC): 6 Lying-Sitting on Side/Bed(QC): 6 Sit to Stand (QC): 6 Chair/Lfu-li-Exrvk Xfer(QC): 6 Toilet Transfer (QC): 6 Car Transfer (QC): 6 Does the Patient Walk: Yes Walk 10 feet (QC): 6 Walk 50ft with 2 Turns (QC): 6 Walk 150 ft (QC): 6 Walking 10ft on Uneven Surface: 6 1 Step (curb) (QC): 6 4 Steps (QC): 6 12 Steps (QC): 6 Picking up an Object (QC): 6 Does the Pt use WC or Scooter?: Yes Wheel 50 feet with 2 turns (QC: 09 Wheel 150 feet: 09 PT Plan Problem List Problem List: Activity Tolerance, Functional Strength, Safety, Balance, Gait, Transfer, Bed Mobility, ROM Treatment/Plan Treatment Plan: Continue Plan of Care Treatment Plan: Bed Mobility, Functional Activity Abdelrahman, Gait, Safety, Therapeutic Exercise, Transfers Treatment Duration: Dec 15, 2021 Frequency: 11 times per week Estimated Hrs Per Day: 1.5 hours per day Patient and/or Family Agrees t: Yes Safety Risks/Education Patient Education: Gait Training, Transfer Techniques, Correct Positioning, Safety Issues Teaching Recipient: Patient Teaching Methods: Demonstration, Discussion Response to Teaching: Reinforcement Needed Time/GCodes Time In: 0900 Time Out: 1000 Total Billed Treatment Time: 60 Total Billed Treatment 1 visit EX 15' FA 45' WILLI NELSNO PT Dec 03, 2021 09:57
--- NOTE | 2021-12-03 11:56 | Occupational Ther Daily Note ---
OT Current Status-Daily Note Subjective Pt using the restroom prior to tx. OT took over for nursing. Pt agreeable to tx. Mental Status/Objective Patient Orientation: Person, Place, Situation Attachments: IV ADL-Treatment Therapy Code Descriptions/Definitions Functional [place] Measure: 0=Not Assessed/NA 4=Minimal Assistance 1=Total Assistance 5=Supervision or Setup 2=Maximal Assistance 6=Modified [place] 3=Moderate Assistance 7=Complete IndependenceSCALE: Activities may be completed with or without assistive devices. 4-Cpdchhkgpp-xjagfdl completes the activity by him/herself with no assistance from a helper. 5-Set-up or Clean-up Assistance-helper sets up or cleans up; patient completes activity. [place] assists only prior to or following the activity. 4-Supervision or Touching Assistance-helper provides verbal cues and/or touching/steadying and/or contact guard assistance as patient completes activity. Assistance may be provided throughout the activity or intermittently. 3-Partial/Moderate Assistance-helper does LESS THAN HALF the effort. [place] lifts, holds or supports trunk or limbs, but provides less than half the effort. 2-Substantial/Maximal Assistance-helper does MORE THAN HALF the effort. [place] lifts or holds trunk or limbs and provides more than half the effort. 4-Mildabkox-uhhqwf does ALL the effort. Patient does none of the effort to complete the activity. Or, the assistance of 2 or more helpers is required for the patient to complete the activity. If activity was not attempted, code reason: 7-Patient Refused. 9-Not Applicable-not attempted and the patient did not perform the activity before the current illness, exacerbation or injury. 10-Not Attempted due to Environmental Limitations-(lack of equipment, weather restraints, etc.). 88-Not Attempted due to Medical Conditions or Safety Concerns. Shower/Bathe Self (QC): 4 (SBA for standing balance. Pt required v/c's for sequencing and to adhere to back precautions.) Upper Body Dressing (QC): 5 Lower Body Dressing (QC): 4 (VCs for back precautions) On/Off Footwear: 5 (slip on shoes) Toileting Hygiene (QC): 6 Other Treatment Pt using restroom prior to tx. OT took over for nursing. Pt required supervision with FWW for all transfers. Pt completed showering and dressing, pt educated on energy conservation with ADLs and AE for LBD. Pt also educated on safety of back precautions, cues required throughout session in order to adhere to precautions. Post tx, pt left in recliner with call light in reach and all needs met. Education OT Patient Education: Correct positioning, Energy conservation, Exercise program, Home exercise program, Instructions don/doff splint/brace, Modified ADL techniques, Progress toward Goal/Update tx plan, Purpose of tx/functional activities, Reviewed precautions, Rehab process, Safety issues, Transfer techniques, Use of adapted equipment OT Short Term Goals Short Term Goals Time Frame: Dec 04, 2021 Eatin Oral hygiene: 6 Toileting hygiene: 6 Shower/bathe self: 4 Upper body dressin Lower body dressin Putting on/taking off footwear: 5 OT Marketing Communications Associate Goals Marketing Communications Associate Goals Time Frame: Dec 08, 2021 Eating (QC): 6 Oral Hygiene (QC): 6 Toileting Hygiene (QC): 6 Shower/Bathe Self (QC): 6 Upper Body Dressing (QC): 6 Lower Body Dressing (QC): 6 On/Off Footwear (QC): 6 1=Demonstrate adherence to instructed precautions during ADL tasks. 2=Patient will verbalize/demonstrate understanding of assistive devices/modifications for ADL. 3=Patient will improve strength/tolerance for activity to enable patient to perform ADL's. OT Education/Plan Problem List/Assessment Assessment: Decreased Activ Tolerance, Decreased Safety Aware, Decreased UE Strength, Impaired Funct Balance, Impaired I ADL's, Impaired Self-Care Skills Discharge Recommendations Plan/Recommendations: Continue POC Equpiment Recommendations-D/C: Bath Chair, Dry Cure Worker, Sock Aide, Elastic Shoe Laces Treatment Plan/Plan of Care Patient would benefit from OT for education, treatment and training to promote independence in ADL's, mobility, safety and/or upper extremity function for ADL's. Plan of Care: ADL Retraining, Functional Mobility, Group Exercise/Act as Ind, UE Funct Exercise/Act Treatment Duration: Dec 08, 2021 Frequency: At least 5 of 7 days/Wk (IRF) Estimated Hrs Per Day: 1.5 hours per day Agreement: Yes Rehab Potential: Good Time/GCodes Start Time: 10:30 Stop Time: 11:45 Total Time Billed (hr/min): 75 Billed Treatment Time 1, ADL 5 LUIS PEARL OT Dec 03, 2021 11:56
--- NOTE | 2021-12-03 14:02 | Physical Therapy Daily Note ---
PT Daily Note-Current Subjective Patient in restroom pre tx, agrees to PT when done, has no complaints of pain. Appearance Patient in recliner post tx with nurse call, phone, tray, in room. Mental Status Patient Orientation: Normal For Age TLSO Transfers SCALE: Activities may be completed with or without assistive devices. 8-Nkmmxiomux-dbxbklv completes the activity by him/herself with no assistance from a helper. 5-Set-up or Clean-up Assistance-helper sets up or cleans up; patient completes activity. [place] assists only prior to or following the activity. 4-Supervision or Touching Assistance-helper provides verbal cues and/or touching/steadying and/or contact guard assistance as patient completes activity. Assistance may be provided throughout the activity or intermittently. 3-Partial/Moderate Assistance-helper does LESS THAN HALF the effort. [place] lifts, holds or supports trunk or limbs, but provides less than half the effort. 2-Substantial/Maximal Assistance-helper does MORE THAN HALF the effort. [place] lifts or holds trunk or limbs and provides more than half the effort. 6-Vaelttomv-xvzaxj does ALL the effort. Patient does none of the effort to complete the activity. Or, the assistance of 2 or more helpers is required for the patient to complete the activity. If activity was not attempted, code reason: 7-Patient Refused. 9-Not Applicable-not attempted and the patient did not perform the activity before the current illness, exacerbation or injury. 10-Not Attempted due to Environmental Limitations-(lack of equipment, weather restraints, etc.). 88-Not Attempted due to Medical Conditions or Safety Concerns. Chair/Epm-ik-Prvpq Xfer(QC): 4 Weight Bearing Right Lower Extremity: Right Full Weight Bearing Left Lower Extremity: Left Full Weight Bearing Gait Training Distance: 800' Walk 10 feet (QC): 4 Walk 50 ft with 2 Turns(QC): 4 Walk 150 ft (QC): 4 Gait Persons Needed: 1 Gait Assistive Device: FWW SBA, slow but steady ambulation Treatments ambulation Assessment Current Status: Fair Progress patient alexandra well, states his legs are sore from physical therapy this morning PT Shelter Goals Shelter Goals PT Shoe Fitter Goals Time Frame: Dec 15, 2021 Roll Left & Right (QC): 6 Sit to Lying (QC): 6 Lying-Sitting on Side/Bed(QC): 6 Sit to Stand (QC): 6 Chair/Xaq-zj-Gxxbc Xfer(QC): 6 Toilet Transfer (QC): 6 Car Transfer (QC): 6 Does the Patient Walk: Yes Walk 10 feet (QC): 6 Walk 50ft with 2 Turns (QC): 6 Walk 150 ft (QC): 6 Walking 10ft on Uneven Surface: 6 1 Step (curb) (QC): 6 4 Steps (QC): 6 12 Steps (QC): 6 Picking up an Object (QC): 6 Does the Pt use WC or Scooter?: Yes Wheel 50 feet with 2 turns (QC: 09 Wheel 150 feet: 09 PT Plan Problem List Problem List: Activity Tolerance, Functional Strength, Safety, Balance, Gait, Transfer, Bed Mobility, ROM Treatment/Plan Treatment Plan: Continue Plan of Care Treatment Plan: Bed Mobility, Functional Activity Abdelrahman, Gait, Safety, Therapeutic Exercise, Transfers Treatment Duration: Dec 15, 2021 Frequency: 11 times per week Estimated Hrs Per Day: 1.5 hours per day Patient and/or Family Agrees t: Yes Safety Risks/Education Patient Education: Gait Training, Transfer Techniques, Correct Positioning, Safety Issues Teaching Recipient: Patient Teaching Methods: Demonstration, Discussion Response to Teaching: Reinforcement Needed Time/GCodes Time In: 1330 Time Out: 1345 Total Billed Treatment Time: 15 Total Billed Treatment 1 visit GT WILLI LOYA PT Dec 03, 2021 14:02
[2021-12-03] MEDS ORDERED: VANCOMYCIN 500 MG/NS 100 ML IV NR ×2 (14:30)
[2021-12-03] MEDS: TAMSULOSIN 0.4 MG (FLOMAX) CAP PO SCH (17:45)
[2021-12-03 19:43] VITALS: BP 151/69
[2021-12-03] MEDS ORDERED: VANCOMYCIN 750 MG/NS 250 ML IVPB IV NR ×2 (21:00)
--- NOTE | 2021-12-04 05:44 | PM&R Progress Note ---
Subjective HPI/CC On Admission Date Seen by Provider: Dec 04, 2021 Time Seen by Provider: 11:00 Subjective/Events-last exam 12/04/21: Pt is doing well PICC line was placed yesterday Urecholine will be given TID due to urinary retention last night No other concerns Discharge tomorrow 12/03/21: No reports of issues Coag negative staph on Cx Vanc and rifampin maintained PICC will be placed 12/02/21: Patient doing well Bowels are moving Antibiotic regimen maintained Awaiting final results with ID and sensitivity from Linda Jarrett Pain is well controlled Monitor closely Review of Systems General: Fatigue, Malaise Genitourinary: Retention Musculoskeletal: back pain Objective Exam Vital Signs Vital Signs Date Time Temp Pulse Resp B/P (MAP) Pulse Ox O2 Delivery O2 Flow Rate FiO2 12/04/21 20:02 37.0 77 16 146/67 (93) 97 Room Air Capillary Refill : General Appearance: No Apparent Distress, WD/WN, Chronically ill HEENT: PERRL/EOMI, Normal ENT Inspection, Pharynx Normal Neck: Full Range of Motion, Normal Inspection, Non Tender, Supple, Carotid Bruit Respiratory: Chest Non Tender, Lungs Clear, Normal Breath Sounds, No Accessory Muscle Use, No Respiratory Distress Cardiovascular: Regular Rate, Rhythm, No Edema, No Gallop, No JVD, No Murmur, Normal Peripheral Pulses Gastrointestinal: Normal Bowel Sounds, No Organomegaly, No Pulsatile Mass, Non Tender, Soft Back: Normal Inspection, Decreased Range of Motion, Muscle Spasm, Vertebral Tenderness Extremity: Normal Capillary Refill, Normal Inspection, Normal Range of Motion, Non Tender, No Calf Tenderness, No Pedal Edema Neurologic/Psychiatric: Alert, Oriented x3, No Motor/Sensory Deficits, Normal Mood/Affect Skin: Normal Color, Warm/Dry Lymphatic: No Adenopathy Results/Procedures Lab Patient resulted labs reviewed. FIM Transfers Therapy Code Descriptions/Definitions Functional [place] Measure: 0=Not Assessed/NA 4=Minimal Assistance 1=Total Assistance 5=Supervision or Setup 2=Maximal Assistance 6=Modified [place] 3=Moderate Assistance 7=Complete IndependenceSCALE: Activities may be completed with or without assistive devices. 6-Vknrpltfcg-bidbwql completes the activity by him/herself with no assistance from a helper. 5-Set-up or Clean-up Assistance-helper sets up or cleans up; patient completes activity. [place] assists only prior to or following the activity. 4-Supervision or Touching Assistance-helper provides verbal cues and/or touching/steadying and/or contact guard assistance as patient completes activity. Assistance may be provided throughout the activity or intermittently. 3-Partial/Moderate Assistance-helper does LESS THAN HALF the effort. [place] lifts, holds or supports trunk or limbs, but provides less than half the effort. 2-Substantial/Maximal Assistance-helper does MORE THAN HALF the effort. [place] lifts or holds trunk or limbs and provides more than half the effort. 4-Gxnxxljsg-ttjnoq does ALL the effort. Patient does none of the effort to complete the activity. Or, the assistance of 2 or more helpers is required for the patient to complete the activity. If activity was not attempted, code reason: 7-Patient Refused. 9-Not Applicable-not attempted and the patient did not perform the activity before the current illness, exacerbation or injury. 10-Not Attempted due to Environmental Limitations-(lack of equipment, weather restraints, etc.). 88-Not Attempted due to Medical Conditions or Safety Concerns. Roll Left to Right (QC): 5 Sit to Lying (QC): 5 Sit to Stand (QC): 6 Chair/Kht-ts-Tzdtg Xfer(QC): 4 Car Transfer (QC): 5 Gait Training Does the Patient Walk?: Yes Distance: 800' Walk 10 feet (QC): 4 Walk 50 ft with 2 Turns(QC): 4 Walk 150 ft (QC): 4 Walking 10ft/uneven surface-QC: 88 Gait Persons Needed: 1 Gait Assistive Device: FWW Wheelchair Training Does the Pt Use a Wheelchair?: No Wheel 50 ft with 2 turns (QC): 09 Wheel 150 ft (QC): 09 Stair Training #of Steps: 12 1 Step (curb) (QC): 5 4 Steps (QC): 5 12 Steps (QC): 5 Balance Picking up an Object (QC): 88 ADL-Treatment Eating (QC): 6 Oral Hygiene (QC): 5 Shower/Bathe Self (QC): 4 (SBA for standing balance. Pt required v/c's for sequencing and to adhere to back precautions.) Upper Body Dressing (QC): 5 Lower Body Dressing (QC): 4 (VCs for back precautions) On/Off Footwear (QC): 5 (slip on shoes) Toileting Hygiene (QC): 6 Assessment/Plan Assessment and Plan Assess & Plan/Chief Complaint Assessment: Lumbar spine surgery due to stenosis with bacterial infection on surgical specimen on Vanc and Rifampin DARIN BPH Recent urinary retention Constipation Plan: PT OT IV abx Supportive senior care meds 12/02/21: Supportive care Monitor closely 12/03/21: PICC Vanc 12/04: PICC IV abx x 6 weeks (1) Lumbar stenosis without neurogenic claudication NELSON JAVIER DO Dec 04, 2021 05:44
[2021-12-04 07:45] VITALS: BP 164/73
[2021-12-04] MEDS: BETHANECHOL 25 MG (URECHOLINE) TAB PO SCH ×3 (08:35→17:41)
[2021-12-04] MEDS: rifAMPin 150 MG CAPSULE PO SCH ×2 (08:35→21:03)
[2021-12-04] MEDS: LACTOBACILLUS ACIDOPHILUS (PROBIOTIC) CAPSULE PO SCH (08:35)
[2021-12-04] MEDS: LORATADINE (CLARITIN) 10 MG TAB PO SCH (08:35)
[2021-12-04] MEDS: VANCOMYCIN 1250 MG/NS 250 ML IVPB IV SCH ×4 (08:39→21:02)
[2021-12-04] MEDS: FLUTICASONE NASAL SPRAY (FLONASE) 16 GM BTL NS SCH ×2 (08:43→21:15)
[2021-12-04] MEDS: FLUOROMETHOLONE 0.1% OP SCH (08:43)
[2021-12-04] MEDS: polyethylene glycoL POWDER 17 GM (MIRALAX) PACK PO SCH ×2 (08:44→21:15)
[2021-12-04] MEDS: DOCUSATE SODIUM 100 MG (COLACE) CAP PO SCH ×2 (08:44→21:15)
[2021-12-04] MEDS: SENNA W/DOCUSATE (SENOKOT S) TABLET PO SCH ×2 (08:44→21:15)
--- NOTE | 2021-12-04 09:54 | Physical Therapy Daily Note ---
PT Daily Note-Current Subjective Patient in recliner pre tx, agrees to PT, has some minor pain in right hip, states he is tired and didn't sleep very well last night. Appearance Patient in recliner post tx with nurse call, phone, tray, all needs met. Mental Status Patient Orientation: Normal For Age Attachments: IV TLSO Transfers SCALE: Activities may be completed with or without assistive devices. 1-Khqmjjajni-ndqnipc completes the activity by him/herself with no assistance from a helper. 5-Set-up or Clean-up Assistance-helper sets up or cleans up; patient completes activity. [place] assists only prior to or following the activity. 4-Supervision or Touching Assistance-helper provides verbal cues and/or touching/steadying and/or contact guard assistance as patient completes activity. Assistance may be provided throughout the activity or intermittently. 3-Partial/Moderate Assistance-helper does LESS THAN HALF the effort. [place] lifts, holds or supports trunk or limbs, but provides less than half the effort. 2-Substantial/Maximal Assistance-helper does MORE THAN HALF the effort. [place] lifts or holds trunk or limbs and provides more than half the effort. 2-Cqohztbtw-kgsllh does ALL the effort. Patient does none of the effort to compl ete the activity. Or, the assistance of 2 or more helpers is required for the patient to complete the activity. If activity was not attempted, code reason: 7-Patient Refused. 9-Not Applicable-not attempted and the patient did not perform the activity before the current illness, exacerbation or injury. 10-Not Attempted due to Environmental Limitations-(lack of equipment, weather restraints, etc.). 88-Not Attempted due to Medical Conditions or Safety Concerns. Roll Left & Right (QC): 6 Sit to Lying (QC): 4 Lying to Sitting/Side of Bed(Q: 4 Sit to Stand (QC): 6 Chair/Uli-ha-Rgmoh Xfer(QC): 6 Toilet Transfer (QC): 6 Car Transfer (QC): 4 Patient can perform rolling with independence, supine <-> sit SBA, sit <-> stand and transfers independent, car transfer SBA. Weight Bearing Right Lower Extremity: Right Full Weight Bearing Left Lower Extremity: Left Full Weight Bearing Gait Training Distance: 800', 400' Walk 10 feet (QC): 6 Walk 50 ft with 2 Turns(QC): 6 Walk 150 ft (QC): 6 Walking 10ft/uneven surface-QC: 6 Gait Assistive Device: FWW Patient can ambulate 800' with independence using a rolling walker (including 50' with at least 2 turns of 90 degrees and 10' over an uneven surface) Wheelchair Training Does the Pt Use a Wheelchair?: No Stair Training Stair Training: Handrails/: 2 handrails #of Steps: 8 1 Step (curb) (QC): 4 4 Steps (QC): 4 Stairs: Pattern: Step to SBA Balance Picking up an Object (QC): 6 (using deer farmer) Exercises NuStep Minutes: 15 NuStep Workload: 5 (BUE not used) Neuromuscular Patient scored 22/28 on the Tinetti Assessment Tool Treatments bed mobility and transfers, ambulation, stair training, gait training, LE strengthening Assessment Current Status: Fair Progress good progress PT Pruner Goals Pruner Goals PT Pruner Goals Time Frame: Dec 15, 2021 Roll Left & Right (QC): 6 Sit to Lying (QC): 6 Lying-Sitting on Side/Bed(QC): 6 Sit to Stand (QC): 6 Chair/Iwf-ki-Lndyi Xfer(QC): 6 Toilet Transfer (QC): 6 Car Transfer (QC): 6 Does the Patient Walk: Yes Walk 10 feet (QC): 6 Walk 50ft with 2 Turns (QC): 6 Walk 150 ft (QC): 6 Walking 10ft on Uneven Surface: 6 1 Step (curb) (QC): 6 4 Steps (QC): 6 12 Steps (QC): 6 Picking up an Object (QC): 6 Does the Pt use WC or Scooter?: Yes Wheel 50 feet with 2 turns (QC: 09 Wheel 150 feet: 09 PT Plan Problem List Problem List: Activity Tolerance, Functional Strength, Safety, Balance, Gait, Transfer, Bed Mobility, ROM Treatment/Plan Treatment Plan: Continue Plan of Care Treatment Plan: Bed Mobility, Functional Activity Abdelrahman, Gait, Safety, Therapeutic Exercise, Transfers Treatment Duration: Dec 15, 2021 Frequency: 11 times per week Estimated Hrs Per Day: 1.5 hours per day Patient and/or Family Agrees t: Yes Safety Risks/Education Patient Education: Gait Training, Transfer Techniques, Steps, Reviewed Precautions, Correct Positioning, Safety Issues Teaching Recipient: Patient Teaching Methods: Demonstration, Discussion Response to Teaching: Reinforcement Needed Time/GCodes Time In: 0900 Time Out: 1000 Total Billed Treatment Time: 60 Total Billed Treatment 1 visit EX 15' FA 45' WILLI NELSON PT Dec 04, 2021 09:54
[2021-12-04] MEDS: ACETAMINOPHEN ER 650 MG TABLET PO PRN ×2 (10:07→17:42)
[2021-12-04] MEDS ORDERED: VANC1.2529 IV (10:17)
--- NOTE | 2021-12-04 11:00 | Occupational Ther Daily Note ---
OT Current Status-Daily Note Subjective Pt seated in recliner prior to tx. Pt reminded on the purpose of OT services and requested to take a shower. Pt agreeable to OT tx. Mental Status/Objective Patient Orientation: Person, Place, Situation Attachments: IV ADL-Treatment Therapy Code Descriptions/Definitions Functional [place] Measure: 0=Not Assessed/NA 4=Minimal Assistance 1=Total Assistance 5=Supervision or Setup 2=Maximal Assistance 6=Modified [place] 3=Moderate Assistance 7=Complete IndependenceSCALE: Activities may be completed with or without assistive devices. 2-Ghfzghljja-tkzjdpa completes the activity by him/herself with no assistance from a helper. 5-Set-up or Clean-up Assistance-helper sets up or cleans up; patient completes activity. [place] assists only prior to or following the activity. 4-Supervision or Touching Assistance-helper provides verbal cues and/or touching/steadying and/or contact guard assistance as patient completes activity. Assistance may be provided throughout the activity or intermittently. 3-Partial/Moderate Assistance-helper does LESS THAN HALF the effort. [place] lifts, holds or supports trunk or limbs, but provides less than half the effort. 2-Substantial/Maximal Assistance-helper does MORE THAN HALF the effort. [place] lifts or holds trunk or limbs and provides more than half the effort. 4-Ixogpzcul-hqcpdw does ALL the effort. Patient does none of the effort to complete the activity. Or, the assistance of 2 or more helpers is required for the patient to complete the activity. If activity was not attempted, code reason: 7-Patient Refused. 9-Not Applicable-not attempted and the patient did not perform the activity before the current illness, exacerbation or injury. 10-Not Attempted due to Environmental Limitations-(lack of equipment, weather restraints, etc.). 88-Not Attempted due to Medical Conditions or Safety Concerns. Eating (QC): 6 Oral Hygiene (QC): 6 Shower/Bathe Self (QC): 4 (V/c's to maintain back precautions and sequencing) Upper Body Dressing (QC): 5 Lower Body Dressing (QC): 4 (V/c's required to thread BLE through underwear and pants with AE.) On/Off Footwear: 5 (slip on shoes.) Toileting Hygiene (QC): 6 Other Treatment Pt seated in recliner prior to OT tx. Pt transferred to bathroom with COLLEEN MANSFIELD, to complete bathing and dressing. Pt educated on energy conservation techniques during showering and AE to dress. Pt apprehensive to bend at all, so OT reviewed back precautions with pt. Pt transferred from bathroom to recliner with COLLEEN MANSFIELD. Post tx, pt left in recliner with call light in reach and all needs met. Education OT Patient Education: Energy conservation, Exercise program, Modified ADL techniques, Progress toward Goal/Update tx plan, Purpose of tx/functional activ ities, Reviewed precautions, Rehab process, Safety issues, Use of adapted equipment Teaching Recipient: Patient Teaching Methods: Discussion Response to Teaching: Verbalize Understanding, Reinforcement Needed OT Short Term Goals Short Term Goals Time Frame: Dec 04, 2021 Eatin Oral hygiene: 6 Toileting hygiene: 6 Shower/bathe self: 4 Upper body dressin Lower body dressin Putting on/taking off footwear: 5 OT Upholsterer Inside Goals Upholsterer Inside Goals Time Frame: Dec 08, 2021 Eating (QC): 6 Oral Hygiene (QC): 6 Toileting Hygiene (QC): 6 Shower/Bathe Self (QC): 6 Upper Body Dressing (QC): 6 Lower Body Dressing (QC): 6 On/Off Footwear (QC): 6 1=Demonstrate adherence to instructed precautions during ADL tasks. 2=Patient will verbalize/demonstrate understanding of assistive devices/modifications for ADL. 3=Patient will improve strength/tolerance for activity to enable patient to perform ADL's. OT Education/Plan Problem List/Assessment Assessment: Impaired Funct Balance, Impaired I ADL's, Impaired Self-Care Skills Discharge Recommendations Plan/Recommendations: Continue POC Treatment Plan/Plan of Care Patient would benefit from OT for education, treatment and training to promote independence in ADL's, mobility, safety and/or upper extremity function for ADL's. Plan of Care: ADL Retraining, Functional Mobility, Group Exercise/Act as Ind, UE Funct Exercise/Act Treatment Duration: Dec 08, 2021 Frequency: At least 5 of 7 days/Wk (IRF) Estimated Hrs Per Day: 1.5 hours per day Agreement: Yes Rehab Potential: Good Time/GCodes Start Time: 10:00 Stop Time: 11:00 Total Time Billed (hr/min): 60 Billed Treatment Time 1, ADL 4 (60') LUIS PEARL OT Dec 04, 2021 11:00
--- NOTE | 2021-12-04 13:31 | Occupational Ther Daily Note ---
OT Current Status-Daily Note Subjective Pt seated in recliner prior to tx. Pt agreeable to tx. Mental Status/Objective Patient Orientation: Person, Place, Situation Attachments: IV ADL-Treatment Therapy Code Descriptions/Definitions Functional [place] Measure: 0=Not Assessed/NA 4=Minimal Assistance 1=Total Assistance 5=Supervision or Setup 2=Maximal Assistance 6=Modified [place] 3=Moderate Assistance 7=Complete IndependenceSCALE: Activities may be completed with or without assistive devices. 5-Plqxklqrgz-yyitzva completes the activity by him/herself with no assistance from a helper. 5-Set-up or Clean-up Assistance-helper sets up or cleans up; patient completes activity. [place] assists only prior to or following the activity. 4-Supervision or Touching Assistance-helper provides verbal cues and/or touching/steadying and/or contact guard assistance as patient completes activity. Assistance may be provided throughout the activity or intermittently. 3-Partial/Moderate Assistance-helper does LESS THAN HALF the effort. [place] lifts, holds or supports trunk or limbs, but provides less than half the effort. 2-Substantial/Maximal Assistance-helper does MORE THAN HALF the effort. [place] lifts or holds trunk or limbs and provides more than half the effort. 7-Pksdcqfko-oqzuag does ALL the effort. Patient does none of the effort to complete the activity. Or, the assistance of 2 or more helpers is required for the patient to complete the activity. If activity was not attempted, code reason: 7-Patient Refused. 9-Not Applicable-not attempted and the patient did not perform the activity before the current illness, exacerbation or injury. 10-Not Attempted due to Environmental Limitations-(lack of equipment, weather restraints, etc.). 88-Not Attempted due to Medical Conditions or Safety Concerns. Other Treatment Pt seated in recliner prior to tx. Pt used FWW to transfer to kitchen area to participate in functional activity, SBA. Pt used FWW and chart changer (PRN). Pt located ramon bags throughout various cabinets/drawers. Pt educated on kitchen strategies to use to conserve energy and maintain back precautions. Pt returned to his room, educated on theraband exercises using moderate resistance (red) theraband. OT educated on how to cover PICC line for showering, recommendations for SC, AE for LE dressing, and education on safety with back precautions. Pt's verbalized understanding and states no further concerns. Post tx, pt in recliner, call light in reach and all needs met. Education OT Patient Education: Correct positioning, Energy conservation, Exercise program, Instructions don/doff splint/brace, Modified ADL techniques, Progress toward Goal/Update tx plan, Purpose of tx/functional activities, Rehab process, Safety issues Teaching Recipient: Patient, Significant Other Teaching Methods: Discussion Response to Teaching: Verbalize Understanding OT Short Term Goals Short Term Goals Time Frame: Dec 04, 2021 Eatin Oral hygiene: 6 Toileting hygiene: 6 Shower/bathe self: 4 Upper body dressin Lower body dressin Putting on/taking off footwear: 5 OT Eligibility Counselor Goals Eligibility Counselor Goals Time Frame: Dec 08, 2021 Eating (QC): 6 Oral Hygiene (QC): 6 Toileting Hygiene (QC): 6 Shower/Bathe Self (QC): 6 Upper Body Dressing (QC): 6 Lower Body Dressing (QC): 6 On/Off Footwear (QC): 6 1=Demonstrate adherence to instructed precautions during ADL tasks. 2=Patient will verbalize/demonstrate understanding of assistive devices/modifications for ADL. 3=Patient will improve strength/tolerance for activity to enable patient to perform ADL's. OT Education/Plan Problem List/Assessment Assessment: Impaired I ADL's, Impaired Self-Care Skills Discharge Recommendations Plan/Recommendations: Continue POC Treatment Plan/Plan of Care Patient would benefit from OT for education, treatment and training to promote independence in ADL's, mobility, safety and/or upper extremity function for ADL's. Plan of Care: ADL Retraining, Functional Mobility, Group Exercise/Act as Ind, UE Funct Exercise/Act Treatment Duration: Dec 08, 2021 Frequency: At least 5 of 7 days/Wk (IRF) Estimated Hrs Per Day: 1.5 hours per day Agreement: Yes Rehab Potential: Good Time/GCodes Start Time: 13:00 Stop Time: 13:30 Total Time Billed (hr/min): 30 Billed Treatment Time 1, FA (20'), EX (10') LUIS PEARL OT Dec 04, 2021 13:31
[2021-12-04] MEDS: TAMSULOSIN 0.4 MG (FLOMAX) CAP PO SCH (17:41)
[2021-12-04 20:02] VITALS: BP 146/67
[2021-12-05] MEDS: BETHANECHOL 25 MG (URECHOLINE) TAB PO SCH ×4 (05:09→21:06)
[2021-12-05] MEDS ORDERED: TMSL.4C PO (06:05)
[2021-12-05] MEDS ORDERED: BETH25TA2 PO (06:05)
[2021-12-05] MEDS ORDERED: RIFA300C8 PO (06:05)
--- NOTE | 2021-12-05 06:06 | D/C HH Face to Face Order ---
D/C Face to Face Orders Reconcile Patient Problems Problems Reviewed?: Yes Instructions for Patient Via [facility], Patient Instructions/FollowUp: PCP 2 weeks Physician to follow Patient: PCP Discharge Diet for Home: No Restrictions Patient Problems: Lumbar spine MSSA infection Patient Data-Allergies,Ht & Wt Patient Allergies: Coded Allergies: clindamycin (Verified Allergy, Unknown, 12/01/21) Home Health Need/Face to Face Date of Face to Face: Dec 05, 2021 Clinical Findings: Generalized weakness and fatigue, Instability, Muscle weakness I have seen Pt iizt-ps-qkhg: Yes Discharged To: Home Diagnosis/Conditions: back pain Patient is Homebound due to: [place] fall risk due to instabilty, Pain w/ambulation Homebound Status Due to the above stated illness, injury or surgical procedure (medical condition or diagnosis) and associated clinical findings, the patient is homebound because of his/her inability to leave home except with aid of a supportive device and/or person AND leaving the home requires a considerable and taxing effort or is medically contraindicated. Pt req the following assistanc: [facility] Home Health Nursing Orders Home Health Services Order: Nursing Services, Quality Assurance Auditor-Evaluate & Treat, Physical Therapy-Evaluate & Treat Home Health Infusion Therapy Line Start Date: Dec 03, 2021 Certify Stmt I certify that this patient is under my care and that I, a nurse practitioner or a physician; a early childhood assistant working with me, had a face to face encounter that - meets the physician face to face encounter requirements with this patient as dated. NELSON JAVIER DO Dec 05, 2021 06:06
--- NOTE | 2021-12-05 06:06 | Discharge Summary ---
Diagnosis/Chief Complaint Date of Admission Dec 01, 2021 at 09:30 Date of Discharge Discharge Date: Dec 05, 2021 Discharge Summary Discharge Physical Examination Allergies: Coded Allergies: clindamycin (Verified Allergy, Unknown, 12/01/21) Vitals & I&Os Vital Signs Date Time Temp Pulse Resp B/P (MAP) Pulse Ox O2 Delivery O2 Flow Rate FiO2 12/05/21 20:00 36.7 83 18 146/69 (94) 97 Room Air Hospital Course Labs (last 24 hrs) Laboratory Tests 12/01/21 12:00: Sodium Level 133L, Potassium Level 3.7, Chloride Level 102, Carbon Dioxide Level 20L, Anion Gap 11, Blood Urea Nitrogen 14, Creatinine 0.76, Estimat Glomerular Filtration Rate 94, BUN/Creatinine Ratio 18, Glucose Level 106H, Calcium Level 8.8 12/02/21 05:10: Sodium Level 132L, Potassium Level 3.4L, Chloride Level 102, Carbon Dioxide Level 20L, Anion Gap 10, Blood Urea Nitrogen 10, Creatinine 0.62, Estimat Glomerular Filtration Rate 100, BUN/Creatinine Ratio 16, Glucose Level 106H, Ca lcium Level 8.1L, White Blood Count 8.4, Red Blood Count 3.55L, Hemoglobin 10.3L , Hematocrit 31L, Mean Corpuscular Volume 87, Mean Corpuscular Hemoglobin 29, Mean Corpuscular Hemoglobin Concent 33, Red Cell Distribution Width 13.2, Platelet Count 164, Mean Platelet Volume 9.3, Immature Granulocyte % (Auto) 0, Neutrophils (%) (Auto) 74, Lymphocytes (%) (Auto) 13, Monocytes (%) (Auto) 9, Eosinophils (%) (Auto) 3, Basophils (%) (Auto) 1, Neutrophils # (Auto) 6.3, Lymphocytes # (Auto) 1.1, Monocytes # (Auto) 0.7, Eosinophils # (Auto) 0.2, Basophils # (Auto) 0.1, Immature Granulocyte # (Auto) 0.0, Corrected Calcium 8.7, Total Bilirubin 2.2H, Aspartate Amino Transf (AST/SGOT) 22, Alanine Aminotransferase (ALT/SGPT) 11, Alkaline Phosphatase 61, Total Protein 5.6L, Albumin 3.2 12/02/21 13:40: Vancomycin Level Trough 10.0 12/05/21 07:00: Sodium Level 138, Potassium Level 3.5L, Chloride Level 101, Carbon Dioxide Level 23, Anion Gap 14, Blood Urea Nitrogen 7, Creatinine 0.67, Estimat Glomerular Filtration Rate 98, BUN/Creatinine Ratio 10, Glucose Level 100, Calcium Level 8.7, White Blood Count 5.9, Red Blood Count 3.95L, Hemoglobin 11.1L, Hematocrit 34L, Mean Corpuscular Volume 86, Mean Corpuscular Hemoglobin 28, Mean Corpuscular Hemoglobin Concent 33, Red Cell Distribution Width 13.2, Platelet Count 219, Mean Platelet Volume 8.9L, Immature Granulocyte % (Auto) 1, Neutrophils (%) (Auto) 70, Lymphocytes (%) (Auto) 17, Monocytes (%) (Auto) 9, Eosinophils (%) (Auto) 3, Basophils (%) (Auto) 1, Neutrophils # (Auto) 4.2, L ymphocytes # (Auto) 1.0, Monocytes # (Auto) 0.5, Eosinophils # (Auto) 0.2, Basophils # (Auto) 0.1, Immature Granulocyte # (Auto) 0.0, Corrected Calcium 9.0, Total Bilirubin 0.8, Aspartate Amino Transf (AST/SGOT) 19, Alanine Aminotransferase (ALT/SGPT) 10, Alkaline Phosphatase 82, Total Protein 6.6, Albumin 3.6 12/05/21 08:15: Vancomycin Level Trough 10.4 12/05/21 20:21: Urine Color YELLOW, Urine Clarity CLEAR, Urine pH 7.0, Urine Specific [place] 1.010L, Urine Protein NEGATIVE, Urine Glucose (UA) NEGATIVE, Urine Ketones 1+H, Urine Nitrite NEGATIVE, Urine Bilirubin NEGATIVE, Urine Urobilinogen 0.2, Urine Leukocyte Esterase NEGATIVE, Urine RBC (Auto) TRACE-IH, Urine RBC 0-2, Urine WBC NONE, Urine Squamous Epithelial Cells NONE, Urine Crystals NONE, Urine Bacteria TRACE, Urine Casts NONE, Urine Mucus SMALLH, Urine Culture Indicated NO Pending Labs Laboratory Tests 12/01/21 12:00: Sodium Level 133, Potassium Level 3.7, Chloride Level 102, Carbon Dioxide Level 20, Anion Gap 11, Blood Urea Nitrogen 14, Creatinine 0.76, Estimat Glomerular Filtration Rate 94, BUN/Creatinine Ratio 18, Glucose Level 106, Calcium Level 8.8 12/02/21 05:10: Sodium Level 132, Potassium Level 3.4, Chloride Level 102, Carbon Dioxide Level 20, Anion Gap 10, Blood Urea Nitrogen 10, Creatinine 0.62, Estimat Glomerular Filtration Rate 100, BUN/Creatinine Ratio 16, Glucose Level 106, Calcium Level 8.1, White Blood Count 8.4, Red Blood Count 3.55, Hemoglobin 10.3, Hematocrit 31, Mean Corpuscular Volume 87, Mean Corpuscular Hemoglobin 29, Mean Corpuscular Hemoglobin Concent 33, Red Cell Distribution Width 13.2, Platelet Count 164, Mean Platelet Volume 9.3, Immature Granulocyte % (Auto) 0, Neutrophils (%) (Auto) 74, Lymphocytes (%) (Auto) 13, Monocytes (%) (Auto) 9, Eosinophils (%) (Auto) 3, Basophils (%) (Auto) 1, Neutrophils # (Auto) 6.3, Lymphocytes # (Auto) 1.1, Monocytes # (Auto) 0.7, Eosinophils # (Auto) 0.2, Basophils # (Auto) 0.1, Immature Granulocyte # (Auto) 0.0, Corrected Calcium 8.7, Total Bilirubin 2.2, Aspartate Amino Transf (AST/SGOT) 22, Alanine Aminotransferase (ALT/SGPT) 11, Alkaline Phosphatase 61, Total Protein 5.6, Albumin 3.2 12/02/21 13:40: Vancomycin Level Trough 10.0 12/05/21 07:00: Sodium Level 138, Potassium Level 3.5, Chloride Level 101, Carbon Dioxide Level 23, Anion Gap 14, Blood Urea Nitrogen 7, Creatinine 0.67, Estimat Glomerular Filtration Rate 98, BUN/Creatinine Ratio 10, Glucose Level 100, Calcium Level 8.7, White Blood Count 5.9, Red Blood Count 3.95, Hemoglobin 11.1, Hematocrit 34, Mean Corpuscular Volume 86, Mean Corpuscular Hemoglobin 28, Mean Corpuscular Hemoglobin Concent 33, Red Cell Distribution Width 13.2, Platelet Count 219, Mean Platelet Volume 8.9, Immature Granulocyte % (Auto) 1, Neutrophils (%) (Auto) 70, Lymphocytes (%) (Auto) 17, Monocytes (%) (Auto) 9, Eosinophils (%) (Auto) 3, Basophils (%) (Auto) 1, Neutrophils # (Auto) 4.2, Lymphocytes # (Auto) 1.0, Monocytes # (Auto) 0.5, Eosinophils # (Auto) 0.2, Basophils # (Auto) 0.1, Immature Granulocyte # (Auto) 0.0, Corrected Calcium 9.0, Total Bilirubin 0.8, Aspartate Amino Transf (AST/SGOT) 19, Alanine Aminotransferase (ALT/SGPT) 10, Alkaline Phosphatase 82, Total Protein 6.6, Albumin 3.6 12/05/21 08:15: Vancomycin Level Trough 10.4 12/05/21 20:21: Urine Color YELLOW, Urine Clarity CLEAR, Urine pH 7.0, Urine Specific [place] 1.010, Urine Protein NEGATIVE, Urine Glucose (UA) NEGATIVE, Urine Ketones 1+, Urine Nitrite NEGATIVE, Urine Bilirubin NEGATIVE, Urine Urobilinogen 0.2, Urine Leukocyte Esterase NEGATIVE, Urine RBC (Auto) TRACE-I, Urine RBC 0-2, Urine WBC NONE, Urine Squamous Epithelial Cells NONE, Urine Crystals NONE, Urine Bacteria TRACE, Urine Casts NONE, Urine Mucus SMALL, Urine Culture Indicated NO Discharge Home Medications: Active Scripts Active Vancomycin 1.5 Gram/250 ml-D5w (Vancomycin HCl/D5w) 1.5 Gram/250 Ml Plast..bag 1.5 Gm IV BID Bethanechol Chloride 25 Mg Tablet 25 Mg PO TIDAC Rifampin 300 Mg Capsule 300 Mg PO BID Flomax (Tamsulosin HCl) 0.4 Mg Cap 0.4 Mg PO UD Patient request at 18:00 after supper Systane Balance (Propylene Glycol) 0.6 % Drops 10 Ml OP TID PRN Administer 1 gtt to each eye 3 times daily as needed Saccharomyces Boulardii 250 Mg Capsule 500 Mg PO DAILY Fluticasone Propionate 50 Mcg/Actuation [place].susp 16 Gm NS BID 2 sprays in each nostril 2 times daily Fluorometholone 0.1 % Drops.susp 5 Ml OP DAILY administer 1 gtt to both eyes daily Docusate Sodium 100 Mg Capsule 200 Mg PO BID PRN Zyrtec (Cetirizine HCl) 10 Mg Capsule 10 Mg PO DAILY Instructions to patient/family Please see electronic discharge instructions given to patient. Diagnosis/Problems Diagnosis/Problems (1) Lumbar stenosis without neurogenic claudication NELSON JAVIER DO Dec 05, 2021 06:06
[2021-12-05 07:09] LABS: BASOPHILS # (AUTO) 0.1 10^3/uL (0.0-0.1); BASOPHILS % (AUTO) 1 % (0-10); EOSINOPHILS # (AUTO) 0.2 10^3/uL (0.0-0.3); EOSINOPHILS % (AUTO) 3 % (0-10); HEMATOCRIT 34 % (40-54); HEMOGLOBIN 11.1 g/dL (13.3-17.7); LYMPHOCYTES % (AUTO) 17 % (12-44); MEAN CORPUSCULAR HEMOGLOBIN 28 pg (25-34); MEAN CORPUSCULAR HGB CONC 33 g/dL (32-36); MEAN CORPUSCULAR VOLUME 86 fL (80-99); MEAN PLATELET VOLUME 8.9 fL (9.0-12.2); MONOCYTES # (AUTO) 0.5 10^3/uL (0.0-1.0); MONOCYTES % (AUTO) 9 % (0-12); NEUTROPHILS # (AUTO) 4.2 10^3/uL (1.8-7.8); NEUTROPHILS % (AUTO) 70 % (42-75); PLATELET COUNT 219 10^3/uL (130-400); WHITE BLOOD COUNT 5.9 10^3/uL (4.3-11.0)
[2021-12-05 07:26] LABS: ALBUMIN 3.6 GM/DL (3.2-4.5); BILIRUBIN,TOTAL 0.8 MG/DL (0.1-1.0); CALCIUM 8.7 MG/DL (8.5-10.1); CREATININE SERUM 0.67 MG/DL (0.60-1.30); POTASSIUM 3.5 MMOL/L (3.6-5.0); TOTAL PROTEIN 6.6 GM/DL (6.4-8.2)
[2021-12-05 07:49] VITALS: BP 144/75
[2021-12-05] MEDS ORDERED: TROUGH ORDER-PHARMACY XX NR (08:00)
[2021-12-05] MEDS: LACTOBACILLUS ACIDOPHILUS (PROBIOTIC) CAPSULE PO SCH (08:18)
[2021-12-05] MEDS: rifAMPin 150 MG CAPSULE PO SCH ×2 (08:18→20:50)
[2021-12-05] MEDS: LORATADINE (CLARITIN) 10 MG TAB PO SCH (08:18)
[2021-12-05] MEDS: polyethylene glycoL POWDER 17 GM (MIRALAX) PACK PO SCH ×2 (08:21→21:06)
[2021-12-05] MEDS: FLUTICASONE NASAL SPRAY (FLONASE) 16 GM BTL NS SCH ×2 (08:21→20:50)
[2021-12-05] MEDS: DOCUSATE SODIUM 100 MG (COLACE) CAP PO SCH ×2 (08:21→21:06)
[2021-12-05] MEDS: FLUOROMETHOLONE 0.1% OP SCH (08:21)
[2021-12-05] MEDS: SENNA W/DOCUSATE (SENOKOT S) TABLET PO SCH ×2 (08:21→21:06)
[2021-12-05] MEDS ORDERED: VANC1.5P12 IV (10:05)
--- NOTE | 2021-12-05 10:30 | Physical Therapy Daily Note ---
PT Daily Note-Current Subjective 930-1030 Upon arrival, pt was seated in recliner. Pt states that he is sore today. Pt agrees to PT. [id number] Upon arrival, pt was seated in recliner, was present. Pt agrees to PT. Pain Comment: Pt reports no pain at this time. Mental Status Patient Orientation: Person, Place, Situation Attachments: Other-See Comments (TLSO), IV Transfers SCALE: Activities may be completed with or without assistive devices. 0-Eymgjaearx-hcyztfz completes the activity by him/herself with no assistance from a helper. 5-Set-up or Clean-up Assistance-helper sets up or cleans up; patient completes activity. [place] assists only prior to or following the activity. 4-Supervision or Touching Assistance-helper provides verbal cues and/or touching/steadying and/or contact guard assistance as patient completes activity. Assistance may be provided throughout the activity or intermittently. 3-Partial/Moderate Assistance-helper does LESS THAN HALF the effort. [place] lifts, holds or supports trunk or limbs, but provides less than half the effort. 2-Substantial/Maximal Assistance-helper does MORE THAN HALF the effort. [place] lifts or holds trunk or limbs and provides more than half the effort. 1-Ogjapagiw-fhvels does ALL the effort. Patient does none of the effort to complete the activity. Or, the assistance of 2 or more helpers is required for the patient to complete the activity. If activity was not attempted, code reason: 7-Patient Refused. 9-Not Applicable-not attempted and the patient did not perform the activity before the current illness, exacerbation or injury. 10-Not Attempted due to Environmental Limitations-(lack of equipment, weather restraints, etc.). 88-Not Attempted due to Medical Conditions or Safety Concerns. Sit to Stand (QC): 4 Weight Bearing Right Lower Extremity: Right Full Weight Bearing Left Lower Extremity: Left Full Weight Bearing Gait Training Does the Patient Walk?: Yes Distance: 600' Walk 10 feet (QC): 4 Walk 50 ft with 2 Turns(QC): 4 Walk 150 ft (QC): 4 Gait Persons Needed: 1 Gait Assistive Device: FWW 930-1030 Pt ambulated with steady GT, at a normal pace. Pt demonstrated no LOB. Pt was SBA/CGA with ambulation. [id number] Pt ambulated from room down gonzalez and back around lobby 2x. Pt required a RB. Pt was SBA with ambulation. Wheelchair Training Does the Pt Use a Wheelchair?: No Exercises Seated Therapy Exercises: Ankle pumps, Long arc quads, Hip flexion, Hip abd/add Seated Reps: 15 Pt demonstrated hip abd/add, pt stated that with hip add there was a pain/discomfort in the back, from the back brace, PT holds Exs today. Treatments 930-1030 Pt performed and completed all Exs listed above. During tx session pts arrived. Pt ambulated from room down to gonzalez with windows and back around lobby 2x. Pt aks PT questions that PT states should be directed toward doctor and SW. Once PT was concluded, pt was seated in recliner with call light and tray in reach and all needs met. [id number] Pt ambulated from room to hallway with windows 2x. Once PT was conclud ed, pt was seated in recliner with call light and tray in reach and all needs met. Pts was still present. Assessment Current Status: Good Progress Pt was a little distracted today, due to meds being delayed. Pt states that he should be DC this evening after receiving his meds. Pt would benefit from continued PT to improve on strength. PT Correction Goals Repairer Pump Goals PT Repairer Pump Goals Time Frame: Dec 15, 2021 Roll Left & Right (QC): 6 Sit to Lying (QC): 6 Lying-Sitting on Side/Bed(QC): 6 Sit to Stand (QC): 6 Chair/Oun-rw-Zrnvl Xfer(QC): 6 Toilet Transfer (QC): 6 Car Transfer (QC): 6 Does the Patient Walk: Yes Walk 10 feet (QC): 6 Walk 50ft with 2 Turns (QC): 6 Walk 150 ft (QC): 6 Walking 10ft on Uneven Surface: 6 1 Step (curb) (QC): 6 4 Steps (QC): 6 12 Steps (QC): 6 Picking up an Object (QC): 6 Does the Pt use WC or Scooter?: Yes Wheel 50 feet with 2 turns (QC: 09 Wheel 150 feet: 09 PT Plan Problem List Problem List: Functional Strength Treatment/Plan Treatment Plan: Continue Plan of Care Treatment Plan: Bed Mobility, Functional Activity Abdelrahman, Gait, Safety, Therapeutic Exercise, Transfers Treatment Duration: Dec 15, 2021 Frequency: 11 times per week Estimated Hrs Per Day: 1.5 hours per day Patient and/or Family Agrees t: Yes Safety Risks/Education Patient Education: Transfer Techniques, Correct Positioning Teaching Recipient: Patient Teaching Methods: Discussion Time/GCodes Time In: 930 Time Out: 1030 Total Billed Treatment Time: 60 Total Billed Treatment 930-1030 1, 2 (30) EX, 2 (30) GT. [id number] 1, 2 (30) GT YAHAIRA BRUNNER PTA Dec 05, 2021 10:30
[2021-12-05] MEDS: VANCOMYCIN 1500 MG/NS 500 ML IVPB IV SCH ×4 (10:47→20:53)
--- NOTE | 2021-12-05 11:21 | Occupational Ther Daily Note ---
OT Current Status-Daily Note Subjective Pt using restroom when OT arrived. Pt agreeable to tx, and OT took over for nursing. Pt started another bag of IV fluids and stated that he "will have to pee a lot." Mental Status/Objective Patient Orientation: Person, Place, Situation Attachments: IV (PICC) ADL-Treatment Therapy Code Descriptions/Definitions Functional [place] Measure: 0=Not Assessed/NA 4=Minimal Assistance 1=Total Assistance 5=Supervision or Setup 2=Maximal Assistance 6=Modified [place] 3=Moderate Assistance 7=Complete IndependenceSCALE: Activities may be completed with or without assistive devices. 7-Fpslxbsfkl-lfjcqzg completes the activity by him/herself with no assistance from a helper. 5-Set-up or Clean-up Assistance-helper sets up or cleans up; patient completes activity. [place] assists only prior to or following the activity. 4-Supervision or Touching Assistance-helper provides verbal cues and/or touching/steadying and/or contact guard assistance as patient completes activity. Assistance may be provided throughout the activity or intermittently. 3-Partial/Moderate Assistance-helper does LESS THAN HALF the effort. [place] lifts, holds or supports trunk or limbs, but provides less than half the effort. 2-Substantial/Maximal Assistance-helper does MORE THAN HALF the effort. [place] lifts or holds trunk or limbs and provides more than half the effort. 2-Kuvsoaeqp-osgodo does ALL the effort. Patient does none of the effort to complete the activity. Or, the assistance of 2 or more helpers is required for the patient to complete the activity. If activity was not attempted, code reason: 7-Patient Refused. 9-Not Applicable-not attempted and the patient did not perform the activity before the current illness, exacerbation or injury. 10-Not Attempted due to Environmental Limitations-(lack of equipment, weather restraints, etc.). 88-Not Attempted due to Medical Conditions or Safety Concerns. Toileting Hygiene (QC): 6 Other Treatment OT took over for nursing upon arrival when pt using restroom. Pt walked to therapy gym with FWW, supervision. Pt participated in standing functional activities to increase BUE strength and endurance and overall activity tolerance. Pt stood for a total of 27min at white board to unscramble word search, requested seated RB at 20min, then stood again for 7min to complete search. Pt needed encouragement to use BUE during activity, as he favored his R hand and used L hand for support on FWW. Pt requested to return to room to use restroom, walked to bathroom with FWW, supervision. Pt returned to recliner after using restroom, needed v/c's to use FWW until seated in chair. Post tx, pt left in recliner with call light in reach and all needs met. Education OT Patient Education: Correct positioning, Energy conservation, Exercise program, Instructions to caregiver, Modified ADL techniques, Progress toward Goal/Update tx plan, Purpose of tx/functional activities, Reviewed precautions, Rehab process, Transfer techniques Teaching Recipient: Patient, Family (, Manisha) Teaching Methods: Demonstration, Discussion Response to Teaching: Verbalize Understanding, Return Demonstration OT Short Term Goals Short Term Goals Time Frame: Dec 04, 2021 Eatin Oral hygiene: 6 Toileting hygiene: 6 Shower/bathe self: 4 Upper body dressin Lower body dressin Putting on/taking off footwear: 5 OT Assisted Goals Assisted Goals Time Frame: Dec 08, 2021 Eating (QC): 6 Oral Hygiene (QC): 6 Toileting Hygiene (QC): 6 Shower/Bathe Self (QC): 6 Upper Body Dressing (QC): 6 Lower Body Dressing (QC): 6 On/Off Footwear (QC): 6 1=Demonstrate adherence to instructed precautions during ADL tasks. 2=Patient will verbalize/demonstrate understanding of assistive devices/modifications for ADL. 3=Patient will improve strength/tolerance for activity to enable patient to perf orm ADL's. OT Education/Plan Problem List/Assessment Assessment: Decreased Activ Tolerance, Impaired I ADL's, Impaired Self-Care Skills Discharge Recommendations Plan/Recommendations: Continue POC Treatment Plan/Plan of Care Patient would benefit from OT for education, treatment and training to promote independence in ADL's, mobility, safety and/or upper extremity function for ADL's. Plan of Care: ADL Retraining, Functional Mobility, Group Exercise/Act as Ind, UE Funct Exercise/Act Treatment Duration: Dec 08, 2021 Frequency: At least 5 of 7 days/Wk (IRF) Estimated Hrs Per Day: 1.5 hours per day Agreement: Yes Rehab Potential: Good Time/GCodes Start Time: 10:30 Stop Time: 11:30 Total Time Billed (hr/min): 60 Billed Treatment Time 1, ADL (15'), FA 3 (45') LUIS PEARL OT Dec 05, 2021 11:21
--- NOTE | 2021-12-05 13:41 | Occupational Ther Daily Note ---
OT Current Status-Daily Note Subjective Pt using restroom upon OT's arrival. Pt agreeable to OT tx, so OT took over for nursing. Pt is excited to return home, and says she has purchased him a shower chair. Mental Status/Objective Patient Orientation: Person, Place, Situation Attachments: IV ([facility]) ADL-Treatment Therapy Code Descriptions/Definitions Functional [place] Measure: 0=Not Assessed/NA 4=Minimal Assistance 1=Total Assistance 5=Supervision or Setup 2=Maximal Assistance 6=Modified [place] 3=Moderate Assistance 7=Complete IndependenceSCALE: Activities may be completed with or without assistive devices. 5-Plxsvzdueu-qouvjsb completes the activity by him/herself with no assistance from a helper. 5-Set-up or Clean-up Assistance-helper sets up or cleans up; patient completes activity. [place] assists only prior to or following the activity. 4-Supervision or Touching Assistance-helper provides verbal cues and/or touch ing/steadying and/or contact guard assistance as patient completes activity. Assistance may be provided throughout the activity or intermittently. 3-Partial/Moderate Assistance-helper does LESS THAN HALF the effort. [place] lifts, holds or supports trunk or limbs, but provides less than half the effort. 2-Substantial/Maximal Assistance-helper does MORE THAN HALF the effort. [place] lifts or holds trunk or limbs and provides more than half the effort. 2-Aqsqcyzvx-nkyshz does ALL the effort. Patient does none of the effort to complete the activity. Or, the assistance of 2 or more helpers is required for the patient to complete the activity. If activity was not attempted, code reason: 7-Patient Refused. 9-Not Applicable-not attempted and the patient did not perform the activity before the current illness, exacerbation or injury. 10-Not Attempted due to Environmental Limitations-(lack of equipment, weather restraints, etc.). 88-Not Attempted due to Medical Conditions or Safety Concerns. Eating (QC): 6 Toileting Hygiene (QC): 6 Other Treatment Pt walked from bathroom to [facility] common area, FWW, supervision, to complete standing functional activity focused on increasing overall activity tolerance. Pt completed entire nuts and bolts activity standing at table, no RBs needed. Pt walked back to room with FWW, supervision, when finished with activity and participated in BUE exercises with Theraband (green-heavy resistance). Pt completed 10 reps of three different exercises before requesting to use the restroom. Pt encouraged to use urinal at night after discharging home so that pt does not have to don/doff brace each time or have difficulty with balance d/t being tired, increasing risk for falls, pt and verbalized understanding. Post tx, pt left in recliner with call light in reach and all needs met. Education OT Patient Education: Correct positioning, Energy conservation, Exercise program, Instructions to caregiver, Modified ADL techniques, Progress toward Goal/Update tx plan, Purpose of tx/functional activities, Rehab process, Safety issues Teaching Recipient: Patient, Family (, Manisha) Teaching Methods: Demonstration, Discussion Response to Teaching: Verbalize Understanding, Return Demonstration OT Short Term Goals Short Term Goals Time Frame: Dec 04, 2021 Eatin Oral hygiene: 6 Toileting hygiene: 6 Shower/bathe self: 4 Upper body dressin Lower body dressin Putting on/taking off footwear: 5 OT District Plant Engineer Goals Snf Goals Time Frame: Dec 08, 2021 Eating (QC): 6 (met) Oral Hygiene (QC): 6 (met) Toileting Hygiene (QC): 6 (met) Shower/Bathe Self (QC): 6 (not met) Upper Body Dressing (QC): 6 (not met) Lower Body Dressing (QC): 6 (not met) On/Off Footwear (QC): 6 (not met) Additional Goals: 1-Demonstrate ADL Tasks, 2-Verbalize Understanding, 3- ImproveStrength/Abdelrahman 1=Demonstrate adherence to instructed precautions during ADL tasks. 2=Patient will verbalize/demonstrate understanding of assistive devices/modifications for ADL. 3=Patient will improve strength/tolerance for activity to enable patient to perform ADL's. OT Education/Plan Problem List/Assessment Assessment: Decreased Activ Tolerance, Impaired I ADL's Discharge Recommendations Plan/Recommendations: Continue POC Treatment Plan/Plan of Care Patient would benefit from OT for education, treatment and training to promote independence in ADL's, mobility, safety and/or upper extremity function for ADL's. Plan of Care: ADL Retraining, Functional Mobility, Group Exercise/Act as Ind, UE Funct Exercise/Act Treatment Duration: Dec 08, 2021 Frequency: At least 5 of 7 days/Wk (IRF) Estimated Hrs Per Day: 1.5 hours per day Agreement: Yes Rehab Potential: Good Time/GCodes Start Time: 13:00 Stop Time: 13:30 Total Time Billed (hr/min): 30 Billed Treatment Time 1, FA (15'), Ex (15') LUIS PEARL OT Dec 05, 2021 13:41
--- NOTE | 2021-12-05 15:27 | Physical Therapy Daily Note ---
PT Daily Note-Current Subjective Late Entry from 12-04-21 Patient sitting upright in chair upon PT arrival, agreeable to treatment. Mental Status Patient Orientation: Person, Place, Time Transfers SCALE: Activities may be completed with or without assistive devices. 5-Dvczlzlddd-xcxsjjb completes the activity by him/herself with no assistance from a helper. 5-Set-up or Clean-up Assistance-helper sets up or cleans up; patient completes activity. [place] assists only prior to or following the activity. 4-Supervision or Touching Assistance-helper provides verbal cues and/or touching/steadying and/or contact guard assistance as patient completes activit y. Assistance may be provided throughout the activity or intermittently. 3-Partial/Moderate Assistance-helper does LESS THAN HALF the effort. [place] lifts, holds or supports trunk or limbs, but provides less than half the effort. 2-Substantial/Maximal Assistance-helper does MORE THAN HALF the effort. [place] lifts or holds trunk or limbs and provides more than half the effort. 5-Zhysrsycc-gqllbg does ALL the effort. Patient does none of the effort to complete the activity. Or, the assistance of 2 or more helpers is required for the patient to complete the activity. If activity was not attempted, code reason: 7-Patient Refused. 9-Not Applicable-not attempted and the patient did not perform the activity before the current illness, exacerbation or injury. 10-Not Attempted due to Environmental Limitations-(lack of equipment, weather restraints, etc.). 88-Not Attempted due to Medical Conditions or Safety Concerns. Sit to Stand (QC): 6 Chair/Ycq-km-Ffavq Xfer(QC): 6 Weight Bearing Right Lower Extremity: Right Full Weight Bearing Left Lower Extremity: Left Full Weight Bearing Gait Training Does the Patient Walk?: Yes Distance: 800 Walk 10 feet (QC): 6 Walk 50 ft with 2 Turns(QC): 6 Walk 150 ft (QC): 6 Gait Persons Needed: 0 Gait Assistive Device: FWW Exercises NuStep Minutes: 15 NuStep Workload: 4 Assessment Current Status: Good Progress Patient tolerated treatment well. Demonstrates I with all observed transfers. Patient ambulates 800 feet with FWW, with I. Patient in chair post treatment with all needs met. PT Paraffin Plant Operator Goals Paraffin Plant Operator Goals PT Residential Goals Time Frame: Dec 15, 2021 Roll Left & Right (QC): 6 Sit to Lying (QC): 6 Lying-Sitting on Side/Bed(QC): 6 Sit to Stand (QC): 6 Chair/Vhq-qq-Qgijx Xfer(QC): 6 Toilet Transfer (QC): 6 Car Transfer (QC): 6 Does the Patient Walk: Yes Walk 10 feet (QC): 6 Walk 50ft with 2 Turns (QC): 6 Walk 150 ft (QC): 6 Walking 10ft on Uneven Surface: 6 1 Step (curb) (QC): 6 4 Steps (QC): 6 12 Steps (QC): 6 Picking up an Object (QC): 6 Does the Pt use WC or Scooter?: Yes Wheel 50 feet with 2 turns (QC: 09 Wheel 150 feet: 09 PT Plan Treatment/Plan Treatment Plan: Continue Plan of Care Treatment Plan: Bed Mobility, Functional Activity Abdelrahman, Gait, Safety, Therapeutic Exercise, Transfers Treatment Duration: Dec 15, 2021 Frequency: 11 times per week Estimated Hrs Per Day: 1.5 hours per day Patient and/or Family Agrees t: Yes Safety Risks/Education Patient Education: Gait Training Teaching Recipient: Patient Teaching Methods: Demonstration, Discussion Response to Teaching: Verbalize Understanding, Return Demonstration Time/GCodes Time In: 1330 Time Out: 1400 Total Billed Treatment Time: 30 Total Billed Treatment Visit, Gait, Ex Late entry from 12-04-21 EEMRY CHAVEZ PT Dec 05, 2021 15:27
[2021-12-05] MEDS: ACETAMINOPHEN ER 650 MG TABLET PO PRN ×2 (16:29→20:51)
[2021-12-05] MEDS: TAMSULOSIN 0.4 MG (FLOMAX) CAP PO SCH (18:12)
--- NOTE | 2021-12-05 18:18 | PM&R Progress Note ---
Subjective HPI/CC On Admission Date Seen by Provider: Dec 05, 2021 Time Seen by Provider: 09:00 Subjective/Events-last exam 12/05/21: Patient is doing well No pain reported Urinary retention occurred as the day progressed Refuses Urecholine Checking UA for UTI Hold DC until tomorrow Urology appt next week May need hernandez cath or in/out cath until then 12/04/21: Pt is doing well PICC line was placed yesterday Urecholine will be given TID due to urinary retention last night No other concerns Discharge tomorrow 12/03/21: No reports of issues Coag negative staph on Cx Vanc and rifampin maintained PICC will be placed 12/02/21: Patient doing well Bowels are moving Antibiotic regimen maintained Awaiting final results with ID and sensitivity from Linda Jarrett Pain is well controlled Monitor closely Review of Systems Genitourinary: Retention Objective Exam Vital Signs Vital Signs Date Time Temp Pulse Resp B/P (MAP) Pulse Ox O2 Delivery O2 Flow Rate FiO2 12/05/21 20:00 36.7 83 18 146/69 (94) 97 Room Air Capillary Refill : General Appearance: No Apparent Distress, WD/WN, Chronically ill HEENT: PERRL/EOMI, Normal ENT Inspection, Pharynx Normal Neck: Full Range of Motion, Normal Inspection, Non Tender, Supple, Carotid Bruit Respiratory: Chest Non Tender, Lungs Clear, Normal Breath Sounds, No Accessory Muscle Use, No Respiratory Distress Cardiovascular: Regular Rate, Rhythm, No Edema, No Gallop, No JVD, No Murmur, Normal Peripheral Pulses Gastrointestinal: Normal Bowel Sounds, No Organomegaly, No Pulsatile Mass, Non Tender, Soft Back: Normal Inspection, Decreased Range of Motion, Muscle Spasm, Vertebral Tenderness Extremity: Normal Capillary Refill, Normal Inspection, Normal Range of Motion, Non Tender, No Calf Tenderness, No Pedal Edema Neurologic/Psychiatric: Alert, Oriented x3, No Motor/Sensory Deficits, Normal Mood/Affect Skin: Normal Color, Warm/Dry Lymphatic: No Adenopathy Results/Procedures Lab Laboratory Tests 12/05/21 07:00 Patient resulted labs reviewed. FIM Transfers Therapy Code Descriptions/Definitions Functional [place] Measure: 0=Not Assessed/NA 4=Minimal Assistance 1=Total Assistance 5=Supervision or Setup 2=Maximal Assistance 6=Modified [place] 3=Moderate Assistance 7=Complete IndependenceSCALE: Activities may be completed with or without assistive devices. 7-Hbctfniieh-fewzznt completes the activity by him/herself with no assistance from a helper. 5-Set-up or Clean-up Assistance-helper sets up or cleans up; patient completes activity. [place] assists only prior to or following the activity. 4-Supervision or Touching Assistance-helper provides verbal cues and/or touching/steadying and/or contact guard assistance as patient completes activity . Assistance may be provided throughout the activity or intermittently. 3-Partial/Moderate Assistance-helper does LESS THAN HALF the effort. [place] lifts, holds or supports trunk or limbs, but provides less than half the effort. 2-Substantial/Maximal Assistance-helper does MORE THAN HALF the effort. [place] lifts or holds trunk or limbs and provides more than half the effort. 3-Fgqgvfsac-osttbb does ALL the effort. Patient does none of the effort to complete the activity. Or, the assistance of 2 or more helpers is required for the patient to complete the activity. If activity was not attempted, code reason: 7-Patient Refused. 9-Not Applicable-not attempted and the patient did not perform the activity before the current illness, exacerbation or injury. 10-Not Attempted due to Environmental Limitations-(lack of equipment, weather restraints, etc.). 88-Not Attempted due to Medical Conditions or Safety Concerns. Roll Left to Right (QC): 6 Sit to Lying (QC): 4 Sit to Stand (QC): 6 Chair/Dvg-gy-Kjnjm Xfer(QC): 6 Car Transfer (QC): 4 Gait Training Does the Patient Walk?: Yes Distance: 800 Walk 10 feet (QC): 6 Walk 50 ft with 2 Turns(QC): 6 Walk 150 ft (QC): 6 Walking 10ft/uneven surface-QC: 6 Gait Persons Needed: 0 Gait Assistive Device: FWW Wheelchair Training Does the Pt Use a Wheelchair?: No Wheel 50 ft with 2 turns (QC): 09 Wheel 150 ft (QC): 09 Stair Training Stair Training: Handrails/: 2 handrails #of Steps: 8 1 Step (curb) (QC): 4 4 Steps (QC): 4 12 Steps (QC): 5 Stairs: Pattern: Step to Balance Picking up an Object (QC): 6 (using retail sales manager) ADL-Treatment Eating (QC): 6 Oral Hygiene (QC): 6 Shower/Bathe Self (QC): 4 (V/c's to maintain back precautions and sequencing) Upper Body Dressing (QC): 5 Lower Body Dressing (QC): 4 (V/c's required to thread BLE through underwear and pants with AE.) On/Off Footwear (QC): 5 (slip on shoes.) Toileting Hygiene (QC): 6 Assessment/Plan Assessment and Plan Assess & Plan/Chief Complaint Assessment: Lumbar spine surgery due to stenosis with bacterial infection on surgical specimen on Vanc and Rifampin DARIN BPH Recent urinary retention Constipation Plan: PT OT IV abx Supportive halfway meds 12/02/21: Supportive care Monitor closely 12/03/21: PICC Vanc 12/04: PICC IV abx x 6 weeks 12/05/21: Hold DC due to urinary retention Monitor closely (1) Lumbar stenosis without neurogenic claudication NELSON JAVIER DO Dec 05, 2021 18:18
[2021-12-05 20:00] VITALS: BP 146/69
[2021-12-05 20:28] LABS: BILIRUBIN,URINE NEGATIVE (NEGATIVE); CLARITY,URINE CLEAR; COLOR,URINE YELLOW; GLUCOSE, URINE (UA) NEGATIVE (NEGATIVE); KETONES,URINE 1+ (NEGATIVE); LEUKOCYTE ESTERASE ,URINE NEGATIVE (NEGATIVE); NITRITE,URINE NEGATIVE (NEGATIVE); PROTEIN,URINE NEGATIVE (NEGATIVE)
[2021-12-05 20:45] LABS: BACTERIA,URINE TRACE /HPF; RBC,URINE 0-2 /HPF
[2021-12-06] MEDS: ACETAMINOPHEN ER 650 MG TABLET PO PRN ×2 (06:18→15:54)
[2021-12-06 07:15] VITALS: BP 147/68
--- NOTE | 2021-12-06 08:55 | Physical Therapy Daily Note ---
PT Daily Note-Current Subjective Patient in recliner pre tx, agrees to PT reluctantly, has pain associated with his catheter, nurse comes in during tx to adjust his catheter anchor and improve comfort. Appearance Patient in recliner post tx with nurse call, phone, tray, all needs met. Mental Status Patient Orientation: Person, Place, Situation Attachments: Lindsey Catheter TLSO Transfers SCALE: Activities may be completed with or without assistive devices. 1-Utuqcvjkjr-tjnztpa completes the activity by him/herself with no assistance from a helper. 5-Set-up or Clean-up Assistance-helper sets up or cleans up; patient completes activity. [place] assists only prior to or following the activity. 4-Supervision or Touching Assistance-helper provides verbal cues and/or touching/steadying and/or contact guard assistance as patient completes activity. Assistance may be provided throughout the activity or intermittently. 3-Partial/Moderate Assistance-helper does LESS THAN HALF the effort. [place] lifts, holds or supports trunk or limbs, but provides less than half the effort. 2-Substantial/Maximal Assistance-helper does MORE THAN HALF the effort. [place] lifts or holds trunk or limbs and provides more than half the effort. 0-Uazcqkhyc-ubpzel does ALL the effort. Patient does none of the effort to complete the activity. Or, the assistance of 2 or more helpers is required for the patient to complete the activity. If activity was not attempted, code reason: 7-Patient Refused. 9-Not Applicable-not attempted and the patient did not perform the activity before the current illness, exacerbation or injury. 10-Not Attempted due to Environmental Limitations-(lack of equipment, weather restraints, etc.). 88-Not Attempted due to Medical Conditions or Safety Concerns. Sit to Stand (QC): 4 Chair/Cue-eq-Hhiin Xfer(QC): 6 Weight Bearing Right Lower Extremity: Right Full Weight Bearing Left Lower Extremity: Left Full Weight Bearing Gait Training Distance: 800' Walk 10 feet (QC): 6 Walk 50 ft with 2 Turns(QC): 6 Walk 150 ft (QC): 6 Gait Assistive Device: FWW Exercises NuStep Minutes: 15 NuStep Workload: 3 Treatments transfers, ambulation, functional strengthening Assessment Current Status: Fair Progress Patient is very concerned about his catheter and goes into great detail about all aspects of it and how it affects him. Patient generally moves much slower during ambulation and movement in general due to his catheter. PT Staff Submarine Warfare Officer Goals Staff Submarine Warfare Officer Goals PT Staff Submarine Warfare Officer Goals Time Frame: Dec 15, 2021 Roll Left & Right (QC): 6 Sit to Lying (QC): 6 Lying-Sitting on Side/Bed(QC): 6 Sit to Stand (QC): 6 Chair/Fro-ba-Tbjfz Xfer(QC): 6 Toilet Transfer (QC): 6 Car Transfer (QC): 6 Does the Patient Walk: Yes Walk 10 feet (QC): 6 Walk 50ft with 2 Turns (QC): 6 Walk 150 ft (QC): 6 Walking 10ft on Uneven Surface: 6 1 Step (curb) (QC): 6 4 Steps (QC): 6 12 Steps (QC): 6 Picking up an Object (QC): 6 Does the Pt use WC or Scooter?: Yes Wheel 50 feet with 2 turns (QC: 09 Wheel 150 feet: 09 PT Plan Problem List Problem List: Activity Tolerance, Functional Strength, Safety, Balance, Gait, Transfer, Bed Mobility, ROM Treatment/Plan Treatment Plan: Continue Plan of Care Treatment Plan: Bed Mobility, Functional Activity Abdelrahman, Gait, Safety, Therapeutic Exercise, Transfers Treatment Duration: Dec 15, 2021 Frequency: 11 times per week Estimated Hrs Per Day: 1.5 hours per day Patient and/or Family Agrees t: Yes Safety Risks/Education Patient Education: Gait Training, Transfer Techniques, Correct Positioning, Safety Issues Teaching Recipient: Patient Teaching Methods: Demonstration, Discussion Response to Teaching: Reinforcement Needed Time/GCodes Time In: 0800 Time Out: 0900 Total Billed Treatment Time: 60 Total Billed Treatment 1 visit EX 15' FA 45' WILLI NELSON PT Dec 06, 2021 08:55
[2021-12-06] MEDS: DOCUSATE SODIUM 100 MG (COLACE) CAP PO SCH ×2 (09:00→19:44)
[2021-12-06] MEDS: SENNA W/DOCUSATE (SENOKOT S) TABLET PO SCH ×3 (09:00→19:45)
[2021-12-06] MEDS: polyethylene glycoL POWDER 17 GM (MIRALAX) PACK PO SCH ×2 (09:00→19:44)
[2021-12-06] MEDS: rifAMPin 150 MG CAPSULE PO SCH ×2 (09:14→19:32)
[2021-12-06] MEDS: BETHANECHOL 25 MG (URECHOLINE) TAB PO SCH ×2 (09:14→17:47)
[2021-12-06] MEDS: LORATADINE (CLARITIN) 10 MG TAB PO SCH (09:15)
[2021-12-06] MEDS: VANCOMYCIN 1500 MG/NS 500 ML IVPB IV SCH ×4 (09:15→19:32)
[2021-12-06] MEDS: LACTOBACILLUS ACIDOPHILUS (PROBIOTIC) CAPSULE PO SCH (09:15)
[2021-12-06] MEDS: FLUTICASONE NASAL SPRAY (FLONASE) 16 GM BTL NS SCH ×2 (09:16→19:54)
[2021-12-06] MEDS: FLUOROMETHOLONE 0.1% OP SCH (09:16)
--- NOTE | 2021-12-06 10:57 | Physical Therapy Daily Note ---
PT Daily Note-Current Subjective Patient in recliner pre tx, agrees to PT, has unrated pain in right and left flank, patient states it is mild pain. Appearance Patient in recliner post tx with nurse call, phone, tray, all needs met. Mental Status Patient Orientation: Person, Place, Situation Attachments: Lindsey Catheter, IV TLSO Transfers SCALE: Activities may be completed with or without assistive devices. 9-Evizjkzmeu-dcyuihs completes the activity by him/herself with no assistance from a helper. 5-Set-up or Clean-up Assistance-helper sets up or cleans up; patient completes activity. [place] assists only prior to or following the activity. 4-Supervision or Touching Assistance-helper provides verbal cues and/or touching/steadying and/or contact guard assistance as patient completes activity. Assistance may be provided throughout the activity or intermittently. 3-Partial/Moderate Assistance-helper does LESS THAN HALF the effort. [place] lifts, holds or supports trunk or limbs, but provides less than half the effort. 2-Substantial/Maximal Assistance-helper does MORE THAN HALF the effort. [place] lifts or holds trunk or limbs and provides more than half the effort. 8-Hkgkxmpbs-ijapgk does ALL the effort. Patient does none of the effort to complete the activity. Or, the assistance of 2 or more helpers is required for the patient to complete the activity. If activity was not attempted, code reason: 7-Patient Refused. 9-Not Applicable-not attempted and the patient did not perform the activity before the current illness, exacerbation or injury. 10-Not Attempted due to Environmental Limitations-(lack of equipment, weather restraints, etc.). 88-Not Attempted due to Medical Conditions or Safety Concerns. Sit to Stand (QC): 6 Chair/Sjr-vu-Hrkfm Xfer(QC): 6 Weight Bearing Right Lower Extremity: Right Full Weight Bearing Left Lower Extremity: Left Full Weight Bearing Gait Training Distance: 1200' Walk 10 feet (QC): 6 Walk 50 ft with 2 Turns(QC): 6 Walk 150 ft (QC): 6 Gait Assistive Device: FWW slow but steady ambulation Treatments transfers, ambulation Assessment Current Status: Fair Progress improved speed and endurance from this morning PT Skilled Nursing Goals Hvac Sales Engineer Goals PT Hvac Sales Engineer Goals Time Frame: Dec 15, 2021 Roll Left & Right (QC): 6 Sit to Lying (QC): 6 Lying-Sitting on Side/Bed(QC): 6 Sit to Stand (QC): 6 Chair/Gnq-fv-Zgiex Xfer(QC): 6 Toilet Transfer (QC): 6 Car Transfer (QC): 6 Does the Patient Walk: Yes Walk 10 feet (QC): 6 Walk 50ft with 2 Turns (QC): 6 Walk 150 ft (QC): 6 Walking 10ft on Uneven Surface: 6 1 Step (curb) (QC): 6 4 Steps (QC): 6 12 Steps (QC): 6 Picking up an Object (QC): 6 Does the Pt use WC or Scooter?: Yes Wheel 50 feet with 2 turns (QC: 09 Wheel 150 feet: 09 PT Plan Problem List Problem List: Activity Tolerance, Functional Strength, Safety, Balance, Gait, Transfer, Bed Mobility, ROM Treatment/Plan Treatment Plan: Continue Plan of Care Treatment Plan: Bed Mobility, Functional Activity Abdelrahman, Gait, Safety, Therapeutic Exercise, Transfers Treatment Duration: Dec 15, 2021 Frequency: 11 times per week Estimated Hrs Per Day: 1.5 hours per day Patient and/or Family Agrees t: Yes Safety Risks/Education Patient Education: Gait Training, Transfer Techniques, Correct Positioning, Safety Issues Teaching Recipient: Patient Teaching Methods: Demonstration, Discussion Response to Teaching: Reinforcement Needed Time/GCodes Time In: 1030 Time Out: 1100 Total Billed Treatment Time: 30 Total Billed Treatment 1 visit GT 30' WILLI NELSON PT Dec 06, 2021 10:57
--- NOTE | 2021-12-06 11:08 | Discharge Summary ---
Diagnosis/Chief Complaint Date of Admission Dec 01, 2021 at 09:30 Date of Discharge Discharge Date: Dec 06, 2021 Discharge Diagnosis Assessment: Lumbar spine surgery due to stenosis with bacterial infection on surgical specimen on Vanc and Rifampin DARIN BPH Recent urinary retention now requiring hernandez cath at [facility] Constipation Plan: PT OT IV abx Supportive custodial meds 12/02/21: Supportive care Monitor closely 12/03/21: PICC Vanc 12/04: PICC IV abx x 6 weeks 12/05/21: Hold DC due to urinary retention Monitor closely (1) Lumbar stenosis without neurogenic claudication Discharge Summary Discharge Physical Examination Allergies: Coded Allergies: clindamycin (Verified Allergy, Unknown, 12/01/21) Vitals & I&Os Vital Signs Date Time Temp Pulse Resp B/P (MAP) Pulse Ox O2 Delivery O2 Flow Rate FiO2 12/06/21 20:00 36.5 81 20 142/64 (90) 98 Room Air General Appearance: Alert, Oriented X3, Cooperative Respiratory: Clear to Auscultation Cardiovascular: Regular Rate Neuro: Normal Gait, Normal Speech, Strength at 5/5 X4 Ext Psych/Mental Status: Mental Status NL Hospital Course Was the Problem List Reviewed?: Yes Brief course after he was admitted from [facility] and empirically placed on Vanc and Rifampin and surgical culture confirmed Staph epi so Vanc was maintained with PICC line placement and patient had urinary retention issue requiring hernandez cath indwelling at [facility] and Urology appt next week. 6 weeks of Rifampin and Vanc sent to pharmacy. Labs (last 24 hrs) Laboratory Tests 12/01/21 12:00: Sodium Level 133L, Potassium Level 3.7, Chloride Level 102, Carbon Dioxide Level 20L, Anion Gap 11, Blood Urea Nitrogen 14, Creatinine 0.76, Estimat Glomerular Filtration Rate 94, BUN/Creatinine Ratio 18, Glucose Level 106H, Calcium Level 8.8 12/02/21 05:10: Sodium Level 132L, Potassium Level 3.4L, Chloride Level 102, Carbon Dioxide Level 20L, Anion Gap 10, Blood Urea Nitrogen 10, Creatinine 0.62, Estimat Glomerular Filtration Rate 100, BUN/Creatinine Ratio 16, Glucose Level 106H, Calcium Level 8.1L, White Blood Count 8.4, Red Blood Count 3.55L, Hemoglobin 10.3L, Hematocrit 31L, Mean Corpuscular Volume 87, Mean Corpuscular Hemoglobin 29, Mean Corpuscular Hemoglobin Concent 33, Red Cell Distribution Width 13.2, Platelet Count 164, Mean Platelet Volume 9.3, Immature Granulocyte % (Auto) 0, Neutrophils (%) (Auto) 74, Lymphocytes (%) (Auto) 13, Monocytes (%) (Auto) 9, Eosinophils (%) (Auto) 3, Basophils (%) (Auto) 1, Neutrophils # (Auto) 6.3, Lymphocytes # (Auto) 1.1, Monocytes # (Auto) 0.7, Eosinophils # (Auto) 0.2, Basophils # (Auto) 0.1, Immature Granulocyte # (Auto) 0.0, Corrected Calcium 8 .7, Total Bilirubin 2.2H, Aspartate Amino Transf (AST/SGOT) 22, Alanine Aminotransferase (ALT/SGPT) 11, Alkaline Phosphatase 61, Total Protein 5.6L, Albumin 3.2 12/02/21 13:40: Vancomycin Level Trough 10.0 12/05/21 07:00: Sodium Level 138, Potassium Level 3.5L, Chloride Level 101, Carbon Dioxide Level 23, Anion Gap 14, Blood Urea Nitrogen 7, Creatinine 0.67, Estimat Glomerular Filtration Rate 98, BUN/Creatinine Ratio 10, Glucose Level 100, Calcium Level 8.7, White Blood Count 5.9, Red Blood Count 3.95L, Hemoglobin 11.1L, Hematocrit 34L, Mean Corpuscular Volume 86, Mean Corpuscular Hemoglobin 28, Mean Corpuscular Hemoglobin Concent 33, Red Cell Distribution Width 13.2, Platelet Count 219, Mean Platelet Volume 8.9L, Immature Granulocyte % (Auto) 1, Neutrophils (%) (Auto) 70, Lymphocytes (%) (Auto) 17, Monocytes (%) (Auto) 9, E osinophils (%) (Auto) 3, Basophils (%) (Auto) 1, Neutrophils # (Auto) 4.2, Lymphocytes # (Auto) 1.0, Monocytes # (Auto) 0.5, Eosinophils # (Auto) 0.2, Basophils # (Auto) 0.1, Immature Granulocyte # (Auto) 0.0, Corrected Calcium 9.0, Total Bilirubin 0.8, Aspartate Amino Transf (AST/SGOT) 19, Alanine Aminotransferase (ALT/SGPT) 10, Alkaline Phosphatase 82, Total Protein 6.6, Albumin 3.6 12/05/21 08:15: Vancomycin Level Trough 10.4 12/05/21 20:21: Urine Color YELLOW, Urine Clarity CLEAR, Urine pH 7.0, Urine Specific [place] 1.010L, Urine Protein NEGATIVE, Urine Glucose (UA) NEGATIVE, Urine Ketones 1+H, Urine Nitrite NEGATIVE, Urine Bilirubin NEGATIVE, Urine Urobilinogen 0.2, Urine Leukocyte Esterase NEGATIVE, Urine RBC (Auto) TRACE-IH, Urine RBC 0-2, Urine WBC NONE, Urine Squamous Epithelial Cells NONE, Urine Crystals NONE, Urine Bacteria TRACE, Urine Casts NONE, Urine Mucus SMALLH, Urine Culture Indicated NO Pending Labs Laboratory Tests 12/01/21 12:00: Sodium Level 133, Potassium Level 3.7, Chloride Level 102, Carbon Dioxide Level 20, Anion Gap 11, Blood Urea Nitrogen 14, Creatinine 0.76, Estimat Glomerular Filtration Rate 94, BUN/Creatinine Ratio 18, Glucose Level 106, Calcium Level 8.8 12/02/21 05:10: Sodium Level 132, Potassium Level 3.4, Chloride Level 102, Carbon Dioxide Level 20, Anion Gap 10, Blood Urea Nitrogen 10, Creatinine 0.62, Estimat Glomerular Filtration Rate 100, BUN/Creatinine Ratio 16, Glucose Level 106, Calcium Level 8.1, White Blood Count 8.4, Red Blood Count 3.55, Hemoglobin 10.3, Hematocrit 31, Mean Corpuscular Volume 87, Mean Corpuscular Hemoglobin 29, Mean Corpuscular Hemoglobin Concent 33, Red Cell Distribution Width 13.2, Platelet Count 164, Mean Platelet Volume 9.3, Immature Granulocyte % (Auto) 0, Neutrophils (%) (Auto) 74, Lymphocytes (%) (Auto) 13, Monocytes (%) (Auto) 9, Eosinophils (%) (Auto) 3, Basophils (%) (Auto) 1, Neutrophils # (Auto) 6.3, Lymphocytes # (Auto) 1.1, Monocytes # (Auto) 0.7, Eosinophils # (Auto) 0.2, Basophils # (Auto) 0.1, Immature Granulocyte # (Auto) 0.0, Corrected Calcium 8.7, Total Bilirubin 2.2, Aspartate Amino Transf (AST/SGOT) 22, Alanine Aminotransferase (ALT/SGPT) 11, Alkaline Phosphatase 61, Total Protein 5.6, Albumin 3.2 12/02/21 13:40: Vancomycin Level Trough 10.0 12/05/21 07:00: Sodium Level 138, Potassium Level 3.5, Chloride Level 101, Carbon Dioxide Level 23, Anion Gap 14, Blood Urea Nitrogen 7, Creatinine 0.67, Estimat Glomerular Filtration Rate 98, BUN/Creatinine Ratio 10, Glucose Level 100, Calcium Level 8.7, White Blood Count 5.9, Red Blood Count 3.95, Hemoglobin 11.1, Hematocrit 34, Mean Corpuscular Volume 86, Mean Corpuscular Hemoglobin 28, Mean Corpuscular Hemoglobin Concent 33, Red Cell Distribution Width 13.2, Platelet Count 219, Mean Platelet Volume 8.9, Immature Granulocyte % (Auto) 1, Neutrophils (%) (Auto) 70, Lymphocytes (%) (Auto) 17, Monocytes (%) (Auto) 9, Eosinophils (%) (Auto) 3, Basophils (%) (Auto) 1, Neutrophils # (Auto) 4.2, Lymphocytes # (Auto) 1.0, Monocytes # (Auto) 0.5, Eosinophils # (Auto) 0.2, Basophils # (Auto) 0.1, Immature Granulocyte # (Auto) 0.0, Corrected Calcium 9.0, Total Bilirubin 0.8, Aspartate Amino Transf (AST/SGOT) 19, Alanine Aminotransferase (ALT/SGPT) 10, Alkaline Phosphatase 82, Total Protein 6.6, Albumin 3.6 12/05/21 08:15: Vancomycin Level Trough 10.4 12/05/21 20:21: Urine Color YELLOW, Urine Clarity CLEAR, Urine pH 7.0, Urine Specific [place] 1.010, Urine Protein NEGATIVE, Urine Glucose (UA) NEGATIVE, Urine Ketones 1+, Urine Nitrite NEGATIVE, Urine Bilirubin NEGATIVE, Urine Urobilinogen 0.2, Urine Leukocyte Esterase NEGATIVE, Urine RBC (Auto) TRACE-I, Urine RBC 0-2, Urine WBC NONE, Urine Squamous Epithelial Cells NONE, Urine Crystals NONE, Urine Bacteria TRACE, Urine Casts NONE, Urine Mucus SMALL, Urine Culture Indicated NO Discharge Home Medications: Active Scripts Active Vancomycin 1.5 Gram/250 ml-D5w (Vancomycin HCl/D5w) 1.5 Gram/250 Ml Plast..bag 1.5 Gm IV BID Bethanechol Chloride 25 Mg Tablet 25 Mg PO TIDAC Rifampin 300 Mg Capsule 300 Mg PO BID Flomax (Tamsulosin HCl) 0.4 Mg Cap 0.4 Mg PO UD Patient request at 18:00 after supper Systane Balance (Propylene Glycol) 0.6 % Drops 10 Ml OP TID PRN Administer 1 gtt to each eye 3 times daily as needed Saccharomyces Boulardii 250 Mg Capsule 500 Mg PO DAILY Fluticasone Propionate 50 Mcg/Actuation [place].susp 16 Gm NS BID 2 sprays in each nostril 2 times daily Fluorometholone 0.1 % Drops.susp 5 Ml OP DAILY administer 1 gtt to both eyes daily Docusate Sodium 100 Mg Capsule 200 Mg PO BID PRN Zyrtec (Cetirizine HCl) 10 Mg Capsule 10 Mg PO DAILY Instructions to patient/family Please see electronic discharge instructions given to patient. Diagnosis/Problems Diagnosis/Problems (1) Lumbar stenosis without neurogenic claudication NELSON JAVIER DO Dec 06, 2021 11:08
--- NOTE | 2021-12-06 13:45 | Occupational Ther Daily Note ---
OT Current Status-Daily Note Subjective Pt seated in recliner upon OT arrival. Pt agreeable to tx but c/o increased physical fatigue d/t PT session earlier. Mental Status/Objective Patient Orientation: Person, Place, Situation Attachments: IV (PICC) ADL-Treatment Therapy Code Descriptions/Definitions Functional [place] Measure: 0=Not Assessed/NA 4=Minimal Assistance 1=Total Assistance 5=Supervision or Setup 2=Maximal Assistance 6=Modified [place] 3=Moderate Assistance 7=Complete IndependenceSCALE: Activities may be completed with or without assistive devices. 4-Ogxpwnwmzh-uttvmgt completes the activity by him/herself with no assistance from a helper. 5-Set-up or Clean-up Assistance-helper sets up or cleans up; patient completes activity. [place] assists only prior to or following the activity. 4-Supervision or Touching Assistance-helper provides verbal cues and/or touching/steadying and/or contact guard assistance as patient completes activity. Assistance may be provided throughout the activity or intermittently. 3-Partial/Moderate Assistance-helper does LESS THAN HALF the effort. [place] lifts, holds or supports trunk or limbs, but provides less than half the effort. 2-Substantial/Maximal Assistance-helper does MORE THAN HALF the effort. [place] lifts or holds trunk or limbs and provides more than half the effort. 9-Vmcuprdvi-gvslhj does ALL the effort. Patient does none of the effort to complete the activity. Or, the assistance of 2 or more helpers is required for the patient to complete the activity. If activity was not attempted, code reason: 7-Patient Refused. 9-Not Applicable-not attempted and the patient did not perform the activity before the current illness, exacerbation or injury. 10-Not Attempted due to Environmental Limitations-(lack of equipment, weather restraints, etc.). 88-Not Attempted due to Medical Conditions or Safety Concerns. Eating (QC): 6 Oral Hygiene (QC): 6 Shower/Bathe Self (QC): 5 (assist to cover up PICC and incision dressing) Upper Body Dressing (QC): 4 (Min v/c's to safely doff shirt over PICC line) Lower Body Dressing (QC): 3 (Min A and v/c's to doff/don/thread pants with cath bag) On/Off Footwear: 6 (slip on shoes) Toileting Hygiene (QC): 6 Toilet Transfer (QC): 6 Other Treatment Pt transferred to bathroom with FWW, supervision, to complete showering and dressing. Pt educated on catheter care in shower and how to thread and don/doff LBD with catheter, pt verbalized understanding and able to return demonstration. Pt required min v/c's throughout session for sequencing, safety, and maintain back precautions. Pt appeared to have difficulty sequencing ADLs due to now josefina ng a hernandez catheter. Pt then returned to recliner with FWW, supervision. Post tx, pt left in recliner with call light in reach and all needs met. Education OT Patient Education: Correct positioning, Energy conservation, Exercise program, Instructions don/doff splint/brace, Instructions to caregiver, Modified ADL techniques, Progress toward Goal/Update tx plan, Purpose of tx/functional activities, Reviewed precautions, Rehab process, Use of adapted equipment Teaching Recipient: Patient, Family Teaching Methods: Demonstration, Discussion Response to Teaching: Verbalize Understanding, Return Demonstration, Reinforcement Needed OT Short Term Goals Short Term Goals Time Frame: Dec 04, 2021 Eatin Oral hygiene: 6 Toileting hygiene: 6 Shower/bathe self: 4 Upper body dressin Lower body dressin Putting on/taking off footwear: 5 OT It Infrastructure Consultant Goals It Infrastructure Consultant Goals Time Frame: Dec 08, 2021 Eating (QC): 6 (met) Oral Hygiene (QC): 6 (met) Toileting Hygiene (QC): 6 (met) Shower/Bathe Self (QC): 6 (not met) Upper Body Dressing (QC): 6 (not met) Lower Body Dressing (QC): 6 (not met) On/Off Footwear (QC): 6 (met) Additional Goals: 1-Demonstrate ADL Tasks, 2-Verbalize Understanding, 3- ImproveStrength/Abdelrahman 1=Demonstrate adherence to instructed precautions during ADL tasks. 2=Patient will verbalize/demonstrate understanding of assistive devices/modifications for ADL. 3=Patient will improve strength/tolerance for activity to enable patient to perform ADL's. OT Education/Plan Problem List/Assessment Assessment: Decreased Activ Tolerance, Impaired Funct Balance, Impaired I ADL's, Impaired Self-Care Skills Discharge Recommendations Plan/Recommendations: Continue POC Treatment Plan/Plan of Care Patient would benefit from OT for education, treatment and training to promote independence in ADL's, mobility, safety and/or upper extremity function for ADL's. Plan of Care: ADL Retraining, Functional Mobility, Group Exercise/Act as Ind, UE Funct Exercise/Act Treatment Duration: Dec 08, 2021 Frequency: At least 5 of 7 days/Wk (IRF) Estimated Hrs Per Day: 1.5 hours per day Agreement: Yes Rehab Potential: Good Time/GCodes Start Time: 11:00 Stop Time: 12:15 Total Time Billed (hr/min): 75 Billed Treatment Time 1, ADL 5 (75') LUIS PEARL OT Dec 06, 2021 13:45
--- NOTE | 2021-12-06 13:53 | Occupational Ther Daily Note ---
OT Current Status-Daily Note Subjective Pt using restroom upon OT arrival. Pt agreeable to tx, so OT took over for nursing. Mental Status/Objective Patient Orientation: Person, Place, Situation Attachments: IV ADL-Treatment Therapy Code Descriptions/Definitions Functional [place] Measure: 0=Not Assessed/NA 4=Minimal Assistance 1=Total Assistance 5=Supervision or Setup 2=Maximal Assistance 6=Modified [place] 3=Moderate Assistance 7=Complete IndependenceSCALE: Activities may be completed with or without assistive devices. 1-Axdniobvgh-nktbrmc completes the activity by him/herself with no assistance from a helper. 5-Set-up or Clean-up Assistance-helper sets up or cleans up; patient completes activity. [place] assists only prior to or following the activity. 4-Supervision or Touching Assistance-helper provides verbal cues and/or touching/steadying and/or contact guard assistance as patient completes activity. Assistance may be provided throughout the activity or intermittently. 3-Partial/Moderate Assistance-helper does LESS THAN HALF the effort. [place] lifts, holds or supports trunk or limbs, but provides less than half the effort. 2-Substantial/Maximal Assistance-helper does MORE THAN HALF the effort. [place] lifts or holds trunk or limbs and provides more than half the effort. 1-Ddeespojh-spzbmk does ALL the effort. Patient does none of the effort to complete the activity. Or, the assistance of 2 or more helpers is required for the patient to complete the activity. If activity was not attempted, code reason: 7-Patient Refused. 9-Not Applicable-not attempted and the patient did not perform the activity before the current illness, exacerbation or injury. 10-Not Attempted due to Environmental Limitations-(lack of equipment, weather restraints, etc.). 88-Not Attempted due to Medical Conditions or Safety Concerns. Eating (QC): 6 Toileting Hygiene (QC): 6 Other Treatment Pt walked from bathroom with FWW, supervision, and stood at bedside table to participate in functional activities focused on increasing BUE strength and overall activity tolerance. Pt completed 7 nuts and bolts with 1lb bilateral wrist weights, requested to remove weights d/t increased discomfort in upper back. Pt then completed remaining 9 nuts and bolt in standing position with no wrist weights. Pt returned to recliner with FWW, supervision. Post tx, pt left in recliner with call light in reach and all needs met. Education OT Patient Education: Correct positioning, Energy conservation, Exercise program, Modified ADL techniques, Progress toward Goal/Update tx plan, Purpose of tx/functional activities, Rehab process Teaching Recipient: Patient Teaching Methods: Discussion Response to Teaching: Verbalize Understanding OT Short Term Goals Short Term Goals Time Frame: Dec 04, 2021 Eatin Oral hygiene: 6 Toileting hygiene: 6 Shower/bathe self: 4 Upper body dressin Lower body dressin Putting on/taking off footwear: 5 OT Shelter Goals Shelter Goals Time Frame: Dec 08, 2021 Eating (QC): 6 (met) Oral Hygiene (QC): 6 (met) Toileting Hygiene (QC): 6 (met) Shower/Bathe Self (QC): 6 (not met) Upper Body Dressing (QC): 6 (not met) Lower Body Dressing (QC): 6 (not met) On/Off Footwear (QC): 6 (not met) Additional Goals: 1-Demonstrate ADL Tasks, 2-Verbalize Understanding, 3- ImproveStrength/Abdelrahman 1=Demonstrate adherence to instructed precautions during ADL tasks. 2=Patient will verbalize/demonstrate understanding of assistive devices/modifications for ADL. 3=Patient will improve strength/tolerance for activity to enable patient to perform ADL's. OT Education/Plan Problem List/Assessment Assessment: Decreased Activ Tolerance, Impaired Funct Balance, Impaired I ADL's, Impaired Self-Care Skills Discharge Recommendations Plan/Recommendations: Continue POC Treatment Plan/Plan of Care Patient would benefit from OT for education, treatment and training to promote independence in ADL's, mobility, safety and/or upper extremity function for ADL's. Plan of Care: ADL Retraining, Functional Mobility, Group Exercise/Act as Ind, UE Funct Exercise/Act Treatment Duration: Dec 08, 2021 Frequency: At least 5 of 7 days/Wk (IRF) Estimated Hrs Per Day: 1.5 hours per day Agreement: Yes Rehab Potential: Good Time/GCodes Start Time: 13:05 Stop Time: 13:20 Total Time Billed (hr/min): 15 Billed Treatment Time 1, FA (15') LUIS PEARL OT Dec 06, 2021 13:53
[2021-12-06] MEDS: TAMSULOSIN 0.4 MG (FLOMAX) CAP PO SCH (17:47)
[2021-12-06 20:00] VITALS: BP 142/64
--- NOTE | 2021-12-07 08:58 | Therapy Team Discharge Summary ---
Therapy Discharge Summary Discharge Recommendations Date of Discharge Dec 06, 2021 at 21:45 Physical Therapy Patient came to rehab with s/p T10-L2 fusion with revision hardware. Upon evaluation patient performed rolling and supine <-> sit with setup, sit <-> stand and transfers with setup, car transfer setup, ambulated 100' with a rolling walker with setup (including 50' with at least 2 turns of 90 degrees), and went up and down 12 steps using 2 handrails with SBA. Patient has been performing bed mobility and transfer training, balance and endurance training, functional strengthening, stair training, gait training, and education. Patient has made good progress and has met all of his group home goals except for car transfer and 12 steps. Now, patient erform rolling with independence, supine <- > sit SBA, sit <-> stand and transfers independent, car transfer SBA, ambulate 800' with independence using a rolling walker (including 50' with at least 2 turns of 90 degrees and 10' over an uneven surface), goes up and down 8 steps using 2 handrails with SBA (patient didn't want to do any more than this when checking QC's), and picked up an object from the floor using a continuous washer operator with independence. Patient has been discharged from this facility and will be discharged from PT at this time. Roll Left to Right (QC): 6 Sit to Lying (QC): 4 Lying to Sitting/Side of Bed(Q: 4 Sit to Stand (QC): 6 Chair/Raq-el-Ocyex Xfer(QC): 6 Toilet Transfer (QC): 6 Car Transfer (QC): 4 Does the Patient Walk: Yes Mode of Locomotion: Walk Anticipated Mode of Locomotion: Walk Walk 10 feet (QC): 6 Walk 50 ft with 2 Turns(QC): 6 Walk 150 ft (QC): 6 Walking 10ft on uneven surface: 6 Distance: 100' Gait Assistive Device: FWW Does the Pt Use a Wheelchair: No Wheel 50 ft with 2 turns (QC): 09 Wheel 150 ft (QC): 09 #of Steps: 8 1 Step (curb) (QC): 4 4 Steps (QC): 4 12 Steps (QC): 5 Balance Sitting Static: Normal Balance Sitting Dynamic: Normal Balance-Standing Static: Fair Picking up an Object (QC): 6 (using continuous washer operator) Occupational Therapy Decreased Activ Tolerance, Impaired Funct Balance, Impaired I ADL's, Impaired Self-Care Skills Eating (QC): 6 Oral Hygiene (QC): 6 Shower/Bathe Self (QC): 5 (assist to cover up PICC and incision dressing) Upper Body Dressing (QC): 4 (Min v/c's to safely doff shirt over PICC line) Lower Body Dressing (QC): 3 (Min A and v/c's to doff/don/thread pants with cath bag) On/Off Footwear (QC): 6 (slip on shoes) Toileting Hygiene (QC): 6 PT Grout Machine Operator Goals Grout Machine Operator Goals PT Grout Machine Operator Goals Time Frame: Dec 15, 2021 Roll Left to Right (QC): 6 Sit to Lying (QC): 6 Lying-Sitting on Side/Bed(QC): 6 Sit to Stand (QC): 6 Chair/Bkr-ht-Gorqp Xfer(QC): 6 Car Transfer (QC): 6 Does the Patient Walk: Yes Walk 10 feet (QC): 6 Walk 10ft-Uneven Surface(QC): 6 Walk 50ft with 2 Turns (QC): 6 Walk 150 ft (QC): 6 Does the Pt use WC or Scooter?: Yes Wheel 50 feet with 2 turns (QC: 09 1 Step (curb) (QC): 6 4 Steps (QC): 6 12 Steps (QC): 6 Picking up an Object (QC): 6 OT Halfway Goals Halfway Goals Time Frame: Dec 08, 2021 Eating (QC): 6 (met) Oral Hygiene (QC): 6 (met) Shower/Bathe Self (QC): 6 (not met) Upper Body Dressing (QC): 6 (not met) Lower Body Dressing (QC): 6 (not met) On/Off Footwear (QC): 6 (met) Toileting Hygiene (QC): 6 (met) Toilet/Commode Transfer (QC): 6 Additional Goals: 1-Demonstrate ADL Tasks, 2-Verbalize Understanding, 3- ImproveStrength/Abdelrahman 1=Demonstrate adherence to instructed precautions during ADL tasks. 2=Patient will verbalize/demonstrate understanding of assistive devices/modifications for ADL. 3=Patient will improve strength/tolerance for activity to enable patient to perform ADL's. WILLI NELSON PT Dec 07, 2021 08:58
--- NOTE | 2021-12-07 09:04 | Therapy Team Discharge Summary ---
Therapy Discharge Summary Discharge Recommendations Date of Discharge Dec 06, 2021 at 21:45 Physical Therapy Roll Left to Right (QC): 6 Sit to Lying (QC): 4 Lying to Sitting/Side of Bed(Q: 4 Sit to Stand (QC): 6 Chair/Dsc-uu-Bzhby Xfer(QC): 6 Toilet Transfer (QC): 6 Car Transfer (QC): 4 Does the Patient Walk: Yes Mode of Locomotion: Walk Anticipated Mode of Locomotion: Walk Walk 10 feet (QC): 6 Walk 50 ft with 2 Turns(QC): 6 Walk 150 ft (QC): 6 Walking 10ft on uneven surface: 6 Distance: 100' Gait Assistive Device: FWW Does the Pt Use a Wheelchair: No Wheel 50 ft with 2 turns (QC): 09 Wheel 150 ft (QC): 09 #of Steps: 8 1 Step (curb) (QC): 4 4 Steps (QC): 4 12 Steps (QC): 5 Balance Sitting Static: Normal Balance Sitting Dynamic: Normal Balance-Standing Static: Fair Picking up an Object (QC): 6 (using executive sales manager) Occupational Therapy Pt admitted to 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 Pt reports being IND with ADLs at PLOF, no AD, but using a executive sales manager to assist with LBD. At eval, pt scored IND with eating, set up with oral hygiene, SBA for showering, supervision with toileting and LBD, and verbal cues for UBD and footwear. OT tx focused on BUE strength and endurance, functional mobility, and overall activity tolerance. Pt made functional progress towards goals, but did not meet all of them (met eating, oral hygiene, and toileting). OT recommends pt get a bath chair, executive sales manager, and sock aide upon discharge. Pt discharged to home with spouse, no further OT services recommended. DC from OT at this time. Decreased Activ Tolerance, Impaired Funct Balance, Impaired I ADL's, Impaired Self-Care Skills Eating (QC): 6 Oral Hygiene (QC): 6 Shower/Bathe Self (QC): 5 (assist to cover up PICC and incision dressing) Upper Body Dressing (QC): 4 (Min v/c's to safely doff shirt over PICC line) Lower Body Dressing (QC): 3 (Min A and v/c's to doff/don/thread pants with cath bag) On/Off Footwear (QC): 6 (slip on shoes) Toileting Hygiene (QC): 6 PT Roller Inspector And Mender Goals Roller Inspector And Mender Goals PT Roller Inspector And Mender Goals Time Frame: Dec 15, 2021 Roll Left to Right (QC): 6 Sit to Lying (QC): 6 Lying-Sitting on Side/Bed(QC): 6 Sit to Stand (QC): 6 Chair/Wbj-zs-Uqevy Xfer(QC): 6 Car Transfer (QC): 6 Does the Patient Walk: Yes Walk 10 feet (QC): 6 Walk 10ft-Uneven Surface(QC): 6 Walk 50ft with 2 Turns (QC): 6 Walk 150 ft (QC): 6 Does the Pt use WC or Scooter?: Yes Wheel 50 feet with 2 turns (QC: 09 1 Step (curb) (QC): 6 4 Steps (QC): 6 12 Steps (QC): 6 Picking up an Object (QC): 6 OT Care Home Goals Roller Inspector And Mender Goals Time Frame: Dec 08, 2021 Eating (QC): 6 (met) Oral Hygiene (QC): 6 (met) Shower/Bathe Self (QC): 6 (not met) Upper Body Dressing (QC): 6 (not met) Lower Body Dressing (QC): 6 (not met) On/Off Footwear (QC): 6 (met) Toileting Hygiene (QC): 6 (met) Toilet/Commode Transfer (QC): 6 Additional Goals: 1-Demonstrate ADL Tasks, 2-Verbalize Understanding, 3- ImproveStrength/Abdelrahman 1=Demonstrate adherence to instructed precautions during ADL tasks. 2=Patient will verbalize/demonstrate understanding of assistive devices/modifications for ADL. 3=Patient will improve strength/tolerance for activity to enable patient to perform ADL's. LUIS PEARL OT Dec 07, 2021 09:04
== END 2021-12-06 21:45 | disposition home health service (06) | DRG 560 ==
PROVIDERS: ADMIT Internal Medicine; ATTEND Internal Medicine
DX: Z47.89 Encounter for other orthopedic aftercare (principal); M46.26 Osteomyelitis of vertebra, lumbar region; Z98.1 Arthrodesis status; B95.61 Methicillin susceptible Staphylococcus aureus infection as the cause of diseases classified elsewhere; G47.33 Obstructive sleep apnea (adult) (pediatric); E78.00 Pure hypercholesterolemia, unspecified; I10 Essential (primary) hypertension; N40.1 Benign prostatic hyperplasia with lower urinary tract symptoms; R33.8 Other retention of urine; K21.9 Gastro-esophageal reflux disease without esophagitis; K59.09 Other constipation; Z88.1 Allergy status to other antibiotic agents
CPT/HCPCS: 36415; 36569; 76937; 80048; 80053; 80202; 81000; 85025